=== PATIENT | male | born 1945 | race Caucasian/White ===

== ENCOUNTER 2016-12-12 06:10 | Inpatient (IN) | payer OTHER, BC ==
[~2016-12-12] VITALS: Ht 180.3 cm; Wt 86.0 kg
[2016-12-12] VITALS (20 sets, daily range): BP systolic 117–149; BP diastolic 76–93; PULSE 52–68; TEMP 36.4–36.9; O2SAT 93–98; Ht 180.3 cm; Wt 86.0 kg
[2016-12-12 06:27] LABS: BASO % 0.7 %; BASO ABS # 0.06 K/uL (0-0.2); COMPLETE YES; EOS % 4.4 %; IG% 0.1 %; LYMPH % 40.8 %; LYMPH ABS # 3.67 K/uL (1.2-3.4); MEAN CELL VOLUME 90.4 fL (80-100); MEAN CORPUSCULAR HEMOGLOBIN 32.9 pg (25-34); MEAN CORPUSCULAR HGB CONC 36.4 g/dl (32-36); MEAN PLATELET VOLUME 10.1 fL (7.4-10.4); MONO % 10.2 %; NEUT % 43.8 %; PLATELET COUNT 288 K/uL (130-400); RED BLOOD COUNT 5.53 M/uL (4.7-6.1); WHITE BLOOD COUNT 8.99 K/uL (4.8-10.8)
[2016-12-12] MEDS ORDERED: NIFE60TA55 PO (06:31)
--- NOTE | 2016-12-12 06:33 | DIAGNOSTIC IMAGING REPORT ---
CHEST ONE VIEW PORTABLE CLINICAL HISTORY: Chest Pain pain COMPARISON STUDY: No previous studies for comparison. FINDINGS: The bones soft tissues and hemidiaphragms are normal. The cardiomediastinal silhouette is normal. The lungs are clear. The pulmonary vasculature is normal. IMPRESSION: Negative chest. The above report was generated using voice recognition software. It may contain grammatical, syntax or spelling errors. Electronically signed by: Zach Christine M.D. 12/12/2016 6:32 AM Dictated Date/Time: 12/12/2016 6:32 AM
[2016-12-12] MEDS ORDERED: NITROGLYCERIN OINT 2% 1GM PACKET EXT STA (06:37)
[2016-12-12] MEDS ORDERED: NITROGLYCERIN OINT 2% 1GM PACKET ONE (06:39)
[2016-12-12 06:46] LABS: BLOOD UREA NITROGEN 15 mg/dl (7-18); BUN/CREATININE RATIO 13.3 (10-20); CALCIUM 10.3 mg/dl (8.5-10.1); CARBON DIOXIDE 25 mmol/L (21-32); CHLORIDE 103 mmol/L (98-107); GLUCOSE 132 mg/dl (70-99); POTASSIUM 3.9 mmol/L (3.5-5.1); SODIUM 138 mmol/L (136-145)
--- NOTE | 2016-12-12 06:47 | EMERGENCY ROOM VISIT NOTE ---
History Report prepared by Reese: Lanny Denton Under the Supervision of: Dr. Jaspreet Chung M.D. First contact with patient: 06:31 Chief Complaint: CHEST PAIN Stated Complaint: CHEST PAIN Nursing Triage Summary: Acute onset 0530 retrosternal chest pressure with radiation to left arm. No nausea, dizziness. No recent illness. Took 5 chewable baby aspirin prior to EMS arrival. Positive Magana sign upon arrival. History of Present Illness The patient is a 71 year old male who presents to the Emergency Room with complaints of waxing and waning left chest pain that began one hour prior to arrival. He currently rates his discomfort as a 7/10 in severity. The patient reports that this morning around 0530 he developed chest pain that he describes as a pressure. He states that he developed left arm numbness. The patient's family notes that the patient was given 4/81 mg aspirin tablets prior to EMS arrival. Per EMS reports, the patient was given 2 nitro sprays prior to arrival that helped to slightly alleviate his pain. The patient states that he became diaphoretic and additionally reports slight nausea. He states that on Monday he changed the tires on his truck, but denies any chest pain or shortness of breath at that time. The patient reports a history of hypertension , but denies any history of heart disease. He denies being a smoker. The patient denies any pain radiating into his jaw or neck. EMS additionally reports that the patient received 4 mg of Morphine and 4 mg of Zofran en-route to the emergency department. Source of History: patient, family, EMS Onset: one hour prior to arrival Position: chest (left) Symptom Intensity: 7/10 Quality: pressure Timing: waxes/wanes Modifying Factors (Relieving): other (nitroglycerin and aspirin) Associated Symptoms: + diaphoresis, + nausea, No neck pain, No SOB Review of Systems See HPI for pertinent positives & negatives. A total of 10 systems reviewed and were otherwise negative. Past Medical & Surgical Medical Problems: (1) Hypertension Family History No pertinent family history stated. Social History Smoking Status: Never Smoker Marital Status: Housing Status: lives with significant other Occupation Status: employed Current/Historical Medications Scheduled Nifedipine (Procardia Xl Ext Rel), 60 MG PO DAILY Allergies Coded Allergies: No Known Allergies (Unverified , 12/12/16) Physical Exam Vital Signs Date Time Temp Pulse Resp B/P (MAP) Pulse Ox O2 Delivery O2 Flow Rate FiO2 12/12/16 07:51 63 16 168/98 96 12/12/16 07:41 67 17 98 Nasal Cannula 2.0 12/12/16 07:31 163/95 Nasal Cannula 2.0 12/12/16 07:28 92 Nasal Cannula 3.0 12/12/16 07:26 64 12 93 Nasal Cannula 2.0 12/12/16 07:21 65 12 92 12/12/16 07:16 142/94 12/12/16 07:16 61 12/12/16 07:06 47 11 96 12/12/16 07:01 143/92 12/12/16 07:00 50 14 97 12/12/16 06:57 152/90 12/12/16 06:45 51 15 98 12/12/16 06:31 165/95 12/12/16 06:30 59 18 98 12/12/16 06:26 156/90 12/12/16 06:19 64 12/12/16 06:16 161/96 12/12/16 06:16 37.5 68 19 161/96 97 Room Air Physical Exam GENERAL: Patient is in no acute distress. HEENT: No acute trauma, normocephalic atraumatic, mucous membranes moist, no nasal congestion, no scleral icterus. NECK: No stridor, no adenopathy, no meningismus, trachea is midline. LUNGS: Clear to auscultation bilaterally, no wheeze, no rhonchi, breath sounds equal. HEART: Without murmurs gallops or rubs, regular rate and rhythm. ABDOMEN: Soft, nontender, bowel sounds positive, no hernias, no peritonitis. EXTREMITIES: No cyanosis or edema, full range of motion of all the joints without pain or difficulty, no signs for acute trauma. NEUROLOGIC: Oriented x 3, no acute motor or sensory deficits, no focal weakness. SKIN: No rash, no jaundice, no diaphoresis. Medical Decision & Procedures ER Provider Diagnostic Interpretation: X-ray results as stated below per interpretation by me and the radiologist: CHEST ONE VIEW PORTABLE CLINICAL HISTORY: Chest Pain pain COMPARISON STUDY: No previous studies for comparison. FINDINGS: The bones soft tissues and hemidiaphragms are normal. The cardiomediastinal silhouette is normal. The lungs are clear. The pulmonary vasculature is normal. IMPRESSION: Negative chest. The above report was generated using voice recognition software. It may contain grammatical, syntax or spelling errors. Electronically signed by: Zach Christine M.D. 12/12/2016 6:32 AM Dictated Date/Time: 12/12/2016 6:32 AM Laboratory Results 12/12/16 05:55 Red Blood Count 5.53, Mean Corpuscular Volume 90.4, Mean Corpuscular Hemoglobin 32.9, Mean Corpuscular Hemoglobin Concent 36.4, Mean Platelet Volume 10.1, Neutrophils (%) (Auto) 43.8, Lymphocytes (%) (Auto) 40.8, Monocytes (%) (Auto) 10.2, Eosinophils (%) (Auto) 4.4, Basophils (%) (Auto) 0.7, Neutrophils # (Auto ) 3.93, Lymphocytes # (Auto) 3.67, Monocytes # (Auto) 0.92, Eosinophils # (Auto ) 0.40, Basophils # (Auto) 0.06 12/12/16 05:55 Test 12/12/16 05:55 White Blood Count 8.99 K/uL (4.8-10.8) Red Blood Count 5.53 M/uL (4.7-6.1) Hemoglobin 18.2 g/dL (14.0-18.0) Hematocrit 50.0 % (42-52) Mean Corpuscular Volume 90.4 fL (80-100) Mean Corpuscular Hemoglobin 32.9 pg (25-34) Mean Corpuscular Hemoglobin Concent 36.4 g/dl (32-36) Platelet Count 288 K/uL (130-400) Mean Platelet Volume 10.1 fL (7.4-10.4) Neutrophils (%) (Auto) 43.8 % Lymphocytes (%) (Auto) 40.8 % Monocytes (%) (Auto) 10.2 % Eosinophils (%) (Auto) 4.4 % Basophils (%) (Auto) 0.7 % Neutrophils # (Auto) 3.93 K/uL (1.4-6.5) Lymphocytes # (Auto) 3.67 K/uL (1.2-3.4) Monocytes # (Auto) 0.92 K/uL (0.11-0.59) Eosinophils # (Auto) 0.40 K/uL (0-0.5) Basophils # (Auto) 0.06 K/uL (0-0.2) RDW Standard Deviation 45.3 fL (36.4-46.3) RDW Coefficient of Variation 13.7 % (11.5-14.5) Immature Granulocyte % (Auto) 0.1 % Immature Granulocyte # (Auto) 0.01 K/uL (0.00-0.02) Prothrombin Time 10.2 SECONDS (9.0-12.0) Prothromb Time International Ratio 1.0 (0.9-1.1) Activated Partial Thromboplast Time 27.0 SECONDS (21.0-31.0) Partial Thromboplastin Ratio 1.0 Anion Gap 10.0 mmol/L (3-11) Est Creatinine Clear Calc Drug Dose 66.5 ml/min Estimated GFR () 78.4 Estimated GFR (Non- 67.7 BUN/Creatinine Ratio 13.3 (10-20) Calcium Level 10.3 mg/dl (8.5-10.1) Total Bilirubin 2.1 mg/dl (0.2-1) Direct Bilirubin 0.3 mg/dl (0-0.2) Aspartate Amino Transf (AST/SGOT) 28 U/L (15-37) Alanine Aminotransferase (ALT/SGPT) 39 U/L (12-78) Alkaline Phosphatase 93 U/L (45-117) Total Creatine Kinase 182 U/L (39-308) Creatine Kinase MB 1.6 ng/ml (0.5-3.6) Creatine Kinase MB Ratio 0.9 (0-3.0) Troponin I < 0.015 ng/ml (0-0.045) Total Protein 8.3 gm/dl (6.4-8.2) Albumin 4.5 gm/dl (3.4-5.0) Laboratory results reviewed by me. Medications Administered Medications (Trade) Dose Ordered Sig/Mega Route Start Time Stop Time Status Last Admin Dose Admin Nitroglycerin (Nitroglycerin 2% Oint) 2 inch NOW STAT EXT 12/12/16 06:37 12/12/16 06:39 DC 12/12/16 06:42 2 INCH Morphine Sulfate (MoRPHine SULFATE INJ) 4 mg Q15M PRN IV 12/12/16 07:00 12/26/16 06:59 12/12/16 07:09 4 MG Ondansetron HCl (Zofran Inj) 4 mg NOW STAT IV 12/12/16 06:50 12/12/16 06:51 DC 12/12/16 06:55 4 MG ECG Indication: chest pain Rate (beats per minute): 74 Rhythm: sinus rhythm Findings: PVC, ST depression (Anterior), T-wave inversion (Anterior) Comparison ECG Date: no prior available Change: This EKG is similar to the EKG obtained by EMS prior to arrival. Repeat EKG: ST depressions and T wave inversions in anterior leads appear more pronounced sinus bradycardia 1st degree AV block. Repeat EKG #2: sinus bradycardia, 58 beats per minute, 1st degree AV block, T wave changes and ST depression across anterior leads are similar to previous, PVC noted. Repeat EKG #3: Improvement in T wave changes in anterior leads. ED Course 0634: The patient was evaluated in room A12B. A complete history and physical exam was performed. 0636: The patient developed more chest pain. An additional EKG was obtained. 0637: Ordered Nitroglycerin 2 inch EXT. 0644: I discussed the patients case with Dr. Monae, Interventional Cardiology. He states that Dr. Guerrero, Interventional Cardiology is going to come evaluate the patient in the emergency department. 0648: I reevaluated the patient and updated him that Dr. Guerrero Interventional Cardiology would be in to evaluate the patient. 0651: Ordered Zofran Inj 4 mg .route 0700: Ordered Morphine Sulfate 4 mg IV. 0718: I reevaluated the patient and he magui that his pain is easing slightly. He is going to have an additional EKG. I discussed the exam findings thus far with him. He is going to be evaluated for further treatment. 0732: I discussed the patients case with Dr. Barrera [facility] [place]. He is going to evaluate the patient for further treatment. 0738: Dr. Monae and Dr. Guerrero of Interventional Cardiology are at the patients bedside. Medical Decision The patient is a 71 year old male who presents to the ED with complaints of left sided chest pain. Differential diagnoses considered include NM, cardiac ischemia, aortic dissection, PE, anemia, musculoskeletal pain. There is no leukocytosis or concerning anemia. No significant electrolyte abnormality, kidney failure or hepatitis. There is no coagulopathy. Chest film does not show CHF, pneumothorax or mediastinal widening. EKG shows a sinus rhythm with ST depression and T-wave inversion in the anterior leads. A PVC is present. This EKG is concerning for acute ischemia. Cardiac enzyme testing 1 has returned negative. The patient presents with chest pain which sounded cardiac in origin. He had received nitroglycerin and aspirin prior to arrival. He was feeling better for a while and then his pain began to return. He was given 2 inches of nitro paste , IV morphine and IV Zofran. Several EKGs were done during the patient's stay. As he began to feel better with the above medications, the changes in the anterior leads began to improve. I did speak with the repair weaver store loss prevention manager immediately after seeing the patient. The patient did not meet criteria for a heart alert. He will be seen though by the cardiology team for possible environmental laboratory technician intervention if his symptoms do not completely improve. The patient is aware of his findings, he has been aggressively managed here. He is feeling improved. Admission/observation is warranted. Case management has been involved. The on-call hospitalist was consulted. Medication Reconcilliation Current Medication List: was personally reviewed by me Blood Pressure Screening Patient's blood pressure: Elevated blood pressure Blood pressure disposition: Elevated BP felt to be situational, Did not require urgent referral Consults Time Called: 0642 Consulting Physician: Dr. Monae, Interventional Cardiology Returned Call: [phone] I discussed the patients case with Dr. Monae, Interventional Cardiology. He is going to come evaluate the patient in the emergency department. Additional Consults: Time Called: 07 Consulted Physician: DOMINGA Galo Returned Call: [phone] Additional Comments: I discussed the patients case with DOMINGA Galo. He is going to evaluate the patient for further treatment. Impression Primary Impression: Precordial chest pain Additional Impression: Acute electrocardiogram changes Critical Care I have personally spent greater than 30 minutes of critical care time in the direct management of this patient. This includes bedside care, interpretation of diagnostic studies, and testing, discussion with consultants, patient, and family members, and other required patient management activities. This 30 minutes is in excess of all separately billable procedures. Scribe Attestation The scribe's documentation has been prepared under my direction and personally reviewed by me in its entirety. I confirm that the note above accurately reflects all work, treatment, procedures, and medical decision making performed by me. Departure Information Dispostion Being Evaluated By Hospitalist Referrals No Doctor, Assigned (PCP) Problem Qualifiers
[2016-12-12] MEDS ORDERED: ONDANSETRON INJ 2 MG/ML 2 ML VIAL IV STA (06:50)
[2016-12-12 06:51] LABS: CKMB/CK RATIO 0.9 (0-3.0)
[2016-12-12] MEDS ORDERED: MoRPHine SULFATE 4 MG/ML 1 ML CARP\\VIAL ONE (06:51)
[2016-12-12] MEDS ORDERED: ONDANSETRON INJ 2 MG/ML 2 ML VIAL ONE ×3 (06:51→13:19)
[2016-12-12] MEDS ORDERED: MIDAZOLAM HCL 1 MG/ML 2ML VIAL ONE ×2 (06:52→10:16)
[2016-12-12] MEDS ORDERED: NiCARDipine HCL INJ 2.5 MG/ML 10 ML AMP ONE (06:52)
[2016-12-12] MEDS ORDERED: HEPARIN SOD (PORCINE) 1000 UNIT/ML 10 ML VIAL ONE ×2 (06:52→09:45)
[2016-12-12] MEDS ORDERED: FENTANYL CITRATE INJ 50 MCG/1 ML 2 ML VIAL ONE ×2 (06:52→10:16)
[2016-12-12] MEDS ORDERED: NITROGLYCERIN/D5W 100MCG/ML 20ML SYR ONE (06:53)
[2016-12-12] MEDS: MoRPHine SULFATE 4 MG/ML 1 ML CARP\\VIAL IV PRN ×2 (06:53→07:09)
--- NOTE | 2016-12-12 08:02 | Procedure Note ---
Pre-Mod Sedation Assessment General Date of Moderate Sedation: Dec 12, 2016. Vital Signs: Vital Signs Past 12 Hours Date Time Temp Pulse Resp B/P (MAP) Pulse Ox O2 Delivery O2 Flow Rate FiO2 12/12/16 07:51 63 16 168/98 96 12/12/16 07:41 67 17 98 Nasal Cannula 2.0 12/12/16 07:31 163/95 Nasal Cannula 2.0 12/12/16 07:28 92 Nasal Cannula 3.0 12/12/16 07:26 64 12 93 Nasal Cannula 2.0 12/12/16 07:21 65 12 92 12/12/16 07:16 142/94 12/12/16 07:16 61 12/12/16 07:06 47 11 96 12/12/16 07:01 143/92 12/12/16 07:00 50 14 97 12/12/16 06:57 152/90 12/12/16 06:45 51 15 98 12/12/16 06:31 165/95 12/12/16 06:30 59 18 98 12/12/16 06:26 156/90 12/12/16 06:19 64 12/12/16 06:16 161/96 12/12/16 06:16 37.5 68 19 161/96 97 Room Air Review Cardiovascular: regular rate, rhythm, no edema Abdomen: normal bowel sounds, non tender Lungs: chest non-tender, lungs clear Airway Class: III Pre-Sedation Airway Assessment Oral Cavity: WNL Able to Visualize Vocal Cords: No Short Thick Neck: Yes Hx of Sleep Apnea: Yes Smoking Status: Never Smoker Mallampati Classification: Class III ASA Classification: Class III Procedure Planning Contraindications-for Mod Sed: None Yes Notes The planned sedation has been discussed with the patient and consent obtained. I have identified the patient, determined the appropriateness of sedation and have assessed the patient immediately prior to the procedure. All medicine(s) and interventions are by my order.
[2016-12-12 08:24] LABS: PROTHROMBIN TIME (PATIENT) 10.2 SECONDS (9.0-12.0)
--- NOTE | 2016-12-12 08:45 | CARDIOLOGY CONSULTATION ---
DATE OF CONSULTATION: 12/12/2016 REASON FOR CONSULTATION: Chest pain. CONSULTATION REQUESTED BY: Dr. Khanna. HISTORY OF PRESENT ILLNESS: Mr. Bender is a 71-year-old man with a history of hypertension, family history of premature coronary artery disease who presented today with a 1 hour of acute onset chest pain. The patient was driving to work this morning when he developed left-sided chest pain that radiated down his left arm, associated with left arm numbness and diaphoresis. The patient endorses his max pain was 10/10. He presented to the [facility] Emergency Department. His initial EKG showed ST depressions across the precordial leads. He was given sublingual and a nitroglycerin patch with improvement in symptoms at the time of interview chest pain was 6/10. The patient denies any similar chest pain in the past. He has no prior cardiac history. No other significant medical history. He was given aspirin en route. PAST MEDICAL HISTORY: Hypertension. PAST SURGICAL HISTORY: Colposcopy, cholecystectomy, prior lipoma removal. FAMILY HISTORY: Father had an RI in his 50s. SOCIAL HISTORY: Denies tobacco or alcohol use. He is , works as a gravel truck driver. REVIEW OF SYSTEMS: Otherwise, negative unless stated in HPI. PHYSICAL EXAMINATION: VITAL SIGNS: Temperature 37.5, blood pressure 161/96. He is satting 98% on room air. His heart rate was 68. GENERAL: The patient appeared uncomfortable but in no acute distress. HEENT: Sclerae are anicteric. Oropharynx is clear. Mucous membranes are moist. NECK: Supple with no lymphadenopathy. LUNGS: Clear to auscultation bilaterally. HEART: Regular rate and rhythm with occasional premature beats. No murmurs, rubs or gallops. ABDOMEN: Soft, nontender, nondistended with positive bowel sounds. EXTREMITIES: Warm with no significant lower extremity edema. SKIN: Shows no rashes or lesions. NEUROLOGIC: Nonfocal. PSYCHIATRIC: He is alert and appropriate. LABORATORY DATA: White blood cell count 8.9, hemoglobin 18.2, platelets of 288. INR pending. Sodium 138, potassium 3.9, BUN 15, creatinine of 1.1. Initial troponin was negative. Chest x-ray showed no acute cardiopulmonary process. EKG showed sinus rhythm with first degree AV block, was bradycardia with ventricular rate of 51. He had deeper ST depression most notable in V2 through V4. IMPRESSION AND PLAN: 1. Suspected acute coronary syndrome. 2. Hypertension. Mr. Bender is here with typical chest pain partially resolved with topical nitrates. His initial EKG has dynamic ST changes concerning for ACS. In the setting of active chest pain, we will plan on proceeding with urgent cardiac catheterization. Discussed benefits, risk, alternatives of procedure with the patient and he is willing to proceed. Further recommendations pending findings cardiac catheterization. JAYE
[2016-12-12] MEDS ORDERED: AMIODARONE 150MG / 100ML D5W ONE (09:29)
[2016-12-12] MEDS ORDERED: AMIODARONE 360MG / 200ML D5W ONE (09:32)
[2016-12-12] MEDS ORDERED: MoRPHine SULFATE 4 MG/ML 1 ML CARP\\VIAL IV PRN (10:00)
[2016-12-12] MEDS ORDERED: ACETAMINOPHEN 325 MG TAB PO PRN ×2 (10:00→10:45)
[2016-12-12] MEDS ORDERED: EPTIFIBATIDE 2 MG/ML 10 ML VIAL IV ONE (10:08)
[2016-12-12] MEDS ORDERED: EPTIFIBATIDE 0.75 MG/ML 75MG VIAL IV ONE (10:08)
[2016-12-12] MEDS ORDERED: TICAGRELOR 90 MG TAB PO ONE (10:34)
[2016-12-12] MEDS ORDERED: AMIODARONE IV BOLUS / DRIP IV STA (10:40)
[2016-12-12] MEDS ORDERED: EPTIFIBATIDE BOLUS / DRIP IV ONE (10:45)
[2016-12-12] MEDS ORDERED: AMIODARONE / D5W 200 ML IV SCH (11:30)
--- NOTE | 2016-12-12 11:30 | Critical Care Consultation ---
Critical Care Consultation Date of Consultation: Dec 12, 2016. Attending Physician: Oleg Sanders D.O. Reason for Consultation: ACS , s/p THOMAS on Integrilin and amiodarone drip. History of Present Illness Dear Dr. Guerrero: thank you for your kind referral of Mr. Bender to ICU, this is 71 yo nice gentleman with a hx of hypertension treated with procardia, no hx of cardiac events, presented to the hospital with sudden onset chest pain @ diaphoresis and numbness in the left arm. he called his son and called the EMT and brought to the ED with diagnosis of ACS. in the ED the pt had an EKG showing inverted T wave in V2-V4 and occasional PVC, s. he was started on heparin drip, ASA and transferred to the rn labor delivery for PCI. in the lab scientist, the pt had two lesions in the LAD and RCA, THOMAS was placed in the RCA, he did have one episode of V fib, responded to a single defibrillation , started on Amiodarone drip as well Integrillin drip. loaded with antiplatelets . In the ICU, he was noted to be lethargic but answering questions appropriately, denies chest pain, only faint discomfort in the chest, he feels much better. no nausia , no syncopal feeling, no palpitation. no leg pain , leg swelling or neuro focal deficit. no headache or visual disturbances. Past Medical/Surgical History HTn . no hx of HLP or DM. Family History family hx of CAD . no hx of needed vascular intervention. Social History Smoking Status: Never Smoker Alcohol Use: none Drug Use: none Marital Status: Housing Status: lives with significant other Occupation Status: employed Allergies Coded Allergies: No Known Allergies (Unverified , 12/12/16) Home Medications Scheduled Nifedipine (Procardia Xl Ext Rel), 60 MG PO DAILY Current Inpatient Medications Current Inpatient Medications Medications (Trade) Dose Ordered Sig/Mega Route Start Time Stop Time Status Last Admin Dose Admin Morphine Sulfate (MoRPHine SULFATE INJ) 4 mg Q15M PRN IV 12/12/16 07:00 12/26/16 06:59 12/12/16 07:09 4 MG Acetaminophen (Tylenol Tab) 650 mg Q4H PRN PO 12/12/16 10:00 01/11/17 09:59 Morphine Sulfate (MoRPHine SULFATE INJ) 2 mg Q2H PRN IV 12/12/16 10:00 12/26/16 09:59 Morphine Sulfate (MoRPHine SULFATE INJ) 4 mg Q2H PRN IV 12/12/16 10:00 12/26/16 09:59 Sodium Chloride 1,000 ml @ 125 mls/hr Q8H IV 12/12/16 10:45 12/12/16 16:44 UNV Atorvastatin Calcium (Lipitor Tab) 80 mg QAM PO 12/13/16 09:00 01/12/17 08:59 UNV Metoprolol Tartrate (Lopressor Tab) 25 mg Q12 PO 12/12/16 21:00 01/11/17 20:59 UNV Lisinopril (Zestril Tab) 5 mg QAM PO 12/13/16 09:00 01/12/17 08:59 UNV Acetaminophen (Tylenol Tab) 650 mg Q4H PRN PO 12/12/16 10:45 01/11/17 10:44 UNV Eptifibatide (Integrilin Bolus / Drip) 1 ea ONE ONCE IV 12/12/16 10:45 12/12/16 10:46 UNV Ticagrelor (Brilinta Tab) 90 mg BID PO 12/12/16 21:00 01/11/17 20:59 UNV Aspirin (Ecotrin Tab) 81 mg QAM PO 12/13/16 09:00 01/12/17 08:59 UNV Amiodarone HCl (Cordarone IV Bolus / Drip) 1 ea NOW STAT IV 12/12/16 10:40 12/12/16 10:41 UNV Review of Systems Constitutional: + chills, + sweats, + fatigue Eyes: No worsening of vision, No eye pain, No redness, No discharge, No diplopia, No problem reported ENT: No hearing loss, No unusual epistaxis, No nasal symptoms, No sore throat, No tinnitus, No dental problems, No trouble swallowing, No problem reported Respiratory: + cough, + wheezing, + shortness of breath Cardiovascular: + chest pain Abdomen: + pain, + nausea, + vomiting Musculoskeletal: No joint pain, No muscle pain, No swelling, No calf pain, No problem reported Neurologic: No memory loss, No paralysis, No weakness, No numbness/tingling, No vertigo, No balance problems, No problem reported Psychiatric: No depression symptoms, No anhedonism, No anxiety, No insomnia, No substance abuse, No problem reported Hematologic / Lymphatic: No abnormal bleeding/bruising, No clotting problems, No swollen lymph nodes, No night sweats, No problem reported Integumentary: No rash, No itch, No new/changing skin lesions, No color change , No bleeding, No problem reported Allergic / Immunologic: No environmental allergies, No seasonal allergies, No pet sensitivities, No food allergies, No hives, No frequent infections, No poor healing, No prolonged convalescence, No problem reported Physical Exam Date Time Temp Pulse Resp B/P (MAP) Pulse Ox O2 Delivery O2 Flow Rate FiO2 12/12/16 10:42 63 16 132/81 (98) 95 Room Air 12/12/16 10:27 60 16 131/80 (97) 99 Mask 6 12/12/16 07:51 63 16 168/98 96 12/12/16 07:41 67 17 98 Nasal Cannula 2.0 12/12/16 07:31 163/95 Nasal Cannula 2.0 12/12/16 07:28 92 Nasal Cannula 3.0 12/12/16 07:26 64 12 93 Nasal Cannula 2.0 12/12/16 07:21 65 12 92 12/12/16 07:16 142/94 12/12/16 07:16 61 12/12/16 07:06 47 11 96 12/12/16 07:01 143/92 12/12/16 07:00 50 14 97 12/12/16 06:57 152/90 12/12/16 06:45 51 15 98 12/12/16 06:31 165/95 12/12/16 06:30 59 18 98 12/12/16 06:26 156/90 12/12/16 06:19 64 12/12/16 06:16 161/96 12/12/16 06:16 37.5 68 19 161/96 97 Room Air General Appearance: well-appearing Head: normocephalic, atraumatic Eyes: PERRLA, EOMI ENT: normal mouth exam Neck: normal range of motion, no tenderness, trachea midline, no stridor Respiratory: breath sounds normal, clear to auscultation Cardiovasular: normal S1S2, no M/G/R Abdomen: non tender, no rebound Upper Extremities: no edema, other Lower Extremities: no edema Neuro: alert, oriented x 3, normal motor exam, normal sensation Psychiatric: normal affect Laboratory Results Last 24 Hours Test 12/12/16 05:55 12/12/16 09:40 12/12/16 10:03 12/12/16 10:40 White Blood Count 8.99 K/uL Red Blood Count 5.53 M/uL Hemoglobin 18.2 g/dL Hematocrit 50.0 % Mean Corpuscular Volume 90.4 fL Mean Corpuscular Hemoglobin 32.9 pg Mean Corpuscular Hemoglobin Concent 36.4 g/dl Platelet Count 288 K/uL Mean Platelet Volume 10.1 fL Neutrophils (%) (Auto) 43.8 % Lymphocytes (%) (Auto) 40.8 % Monocytes (%) (Auto) 10.2 % Eosinophils (%) (Auto) 4.4 % Basophils (%) (Auto) 0.7 % Neutrophils # (Auto) 3.93 K/uL Lymphocytes # (Auto) 3.67 K/uL Monocytes # (Auto) 0.92 K/uL Eosinophils # (Auto) 0.40 K/uL Basophils # (Auto) 0.06 K/uL RDW Standard Deviation 45.3 fL RDW Coefficient of Variation 13.7 % Immature Granulocyte % (Auto) 0.1 % Immature Granulocyte # (Auto) 0.01 K/uL Prothrombin Time 10.2 SECONDS Prothromb Time International Ratio 1.0 Activated Partial Thromboplast Time 27.0 SECONDS Partial Thromboplastin Ratio 1.0 Sodium Level 138 mmol/L Potassium Level 3.9 mmol/L Chloride Level 103 mmol/L Carbon Dioxide Level 25 mmol/L Anion Gap 10.0 mmol/L Blood Urea Nitrogen 15 mg/dl Creatinine 1.10 mg/dl Est Creatinine Clear Calc Drug Dose 66.5 ml/min Estimated GFR () 78.4 Estimated GFR (Non- 67.7 BUN/Creatinine Ratio 13.3 Random Glucose 132 mg/dl Calcium Level 10.3 mg/dl Total Bilirubin 2.1 mg/dl Direct Bilirubin 0.3 mg/dl Aspartate Amino Transf (AST/SGOT) 28 U/L Alanine Aminotransferase (ALT/SGPT) 39 U/L Alkaline Phosphatase 93 U/L Total Creatine Kinase 182 U/L Creatine Kinase MB 1.6 ng/ml Creatine Kinase MB Ratio 0.9 Troponin I < 0.015 ng/ml Total Protein 8.3 gm/dl Albumin 4.5 gm/dl Kaolin Activated Coagulation Time 202 SECONDS 230 SECONDS Diagnostic Results CXR reviewed, normal, tracheal shift noted could be positional. Assessment & Plan 1- ACS, first trop was negative, second is pending. 2 lesions in the LAD and RCA with THOMAS to the RCA. 2- v fib, s/p defibrillation. 3- hx of Htn, controlled. 4- right radial site appears normal , vascular band in place, no evidence of bleeding or induration, no cyanosis or coldness or numbness in the right hand. 5- HLP. 6- EKG changes compatible with NSTEMI. Plan: 1- appreciate Cardiology input. 2- continue post cath care, Integrilin , Brilinta, ASA. 3- Amiodarone drip per protocol. 4- BP control, so far acceptable. 5- venodyne boots. 6- oral intake. 7- ICU monitoring. 8- further plan per cardiology. 9- full code. 10- discussed with the staff at the bed side in details. CCT 35 min.
[2016-12-12] MEDS: EPTIFIBATIDE INJ 75 MG PREMIXED IV SCH ×2 (11:38→15:36)
[2016-12-12] MEDS: SODIUM CHLORIDE 0.9% 1000ML 1,000 ML IV SCH ×2 (11:40→15:38)
[2016-12-12] MEDS: MoRPHine SULFATE 2 MG/ML CARP IV PRN ×3 (11:40→22:19)
[2016-12-12] MEDS ORDERED: METOCLOPRAMIDE HCL INJ 5 MG/ML 2 ML VIAL ONE (11:57)
[2016-12-12] MEDS ORDERED: METOCLOPRAMIDE HCL INJ 5 MG/ML 2 ML VIAL IV STA (12:06)
[2016-12-12] MEDS ORDERED: PROCHLORPERAZINE INJ 5 MG in SYRINGE 4 ML IV PRN (12:45)
--- NOTE | 2016-12-12 14:23 | History and Physical ---
History & Physical Date & Time of Service: Dec 12, 2016 at 13:57 Chief Complaint: Acute Coronary Syndrome, Precordial Chest Pain Primary Care Physician: Jamil Lim M.D. History of Present Illness Source: patient, family, hospital records 71 yo male with only a history of HTN, presented to the ED with severe chest pain and TW inversions in anterior leads. The patient had no history of angina or CAD. He awoke with chest pain and it waxed and waned for an hour before he presented to the ED. Associated with some diaphoresis. He took 4 baby aspirin and 2 doses of nitroglycerin which did alleviate the pain somewhat. In the ED he was found to have TW inversions in anterior leads, troponin negative. Vitals stable. He was taken to the slab inspector and found to have significant CAD with three vessels involved. The most significant lesion was in the left circumflex, >90%, likely the source of symptoms. He had simple balloon angioplasty performed but he developed ventricular fibrillation and had to be shocked once. For this reason, he had a BMS placed in the left circumflex. Patient was transferred to the ICU in stable condition. Visited with patient an hour after procedure. Resting comfortably in bed. Only complaint was some mild pain between his shoulder blades. Had some nausea that had resolved. Discussed case with Dr. Guerrero, plans to hospitalized for 48 hours, may be able to return home at that point and follow up with cardiovascular surgery for CABG evaluation Past Medical/Surgical History Medical Problems: (1) Hypertension Status: Chronic Family History CAD Social History Smoking Status: Never Smoker Alcohol Use: none Drug Use: none Marital Status: Occupational Status: employed Allergies Coded Allergies: No Known Allergies (Unverified , 12/12/16) Home Medications Scheduled Nifedipine (Procardia Xl Ext Rel), 60 MG PO DAILY Review of Systems Constitutional: No fever, No chills, No sweats, No weight loss, No weakness, No fatigue, No problem reported Eyes: No worsening of vision, No eye pain, No redness, No discharge, No diplopia, No problem reported ENT: No hearing loss, No unusual epistaxis, No nasal symptoms, No sore throat, No tinnitus, No dental problems, No trouble swallowing, No problem reported Respiratory: No cough, No sputum, No wheezing, No shortness of breath, No dyspnea on exertion, No dyspnea at rest, No hemoptysis, No problem reported Cardiovascular: + chest pain, No orthopnea, No PND, No edema, No claudication Abdomen: + nausea, No pain, No vomiting, No diarrhea, No constipation Musculoskeletal: No joint pain, No muscle pain, No swelling, No calf pain, No problem reported Genitourinary - Male: No hematuria, No dysuria, No urinary frequency, No urinary urgency Neurologic: No memory loss, No paralysis, No weakness, No numbness/tingling, No vertigo, No balance problems, No problem reported Psychiatric: No depression symptoms, No anhedonism, No anxiety, No insomnia, No substance abuse, No problem reported Endocrine: No fatigue, No excessive thirst, No excessive urination, No problem reported Hematologic / Lymphatic: No abnormal bleeding/bruising, No clotting problems, No swollen lymph nodes, No night sweats, No problem reported Integumentary: No rash, No itch, No new/changing skin lesions, No color change , No bleeding, No problem reported Allergic / Immunologic: No environmental allergies, No seasonal allergies, No pet sensitivities, No food allergies, No hives, No frequent infections, No poor healing, No prolonged convalescence, No problem reported Physical Exam Vital Signs Date Time Temp Pulse Resp B/P (MAP) Pulse Ox O2 Delivery O2 Flow Rate FiO2 12/12/16 12:31 67 17 140/86 (104) 95 Nasal Cannula 2.0 12/12/16 12:16 65 17 138/79 (98) 95 Nasal Cannula 2.0 12/12/16 12:01 62 18 134/86 (102) 96 Nasal Cannula 2.0 12/12/16 11:46 66 19 142/93 (109) 96 Nasal Cannula 2.0 12/12/16 11:31 60 16 146/88 (107) 96 Nasal Cannula 2.0 12/12/16 11:03 36.4 58 12 135/86 96 Nasal Cannula 2.0 12/12/16 11:01 60 17 135/86 (102) 96 Nasal Cannula 2.0 12/12/16 10:58 36.4 64 15 138/82 (100) 95 Nasal Cannula 2.0 12/12/16 10:42 63 16 132/81 (98) 95 Room Air 12/12/16 10:27 60 16 131/80 (97) 99 Mask 6 12/12/16 07:51 63 16 168/98 96 12/12/16 07:41 67 17 98 Nasal Cannula 2.0 12/12/16 07:31 163/95 Nasal Cannula 2.0 12/12/16 07:28 92 Nasal Cannula 3.0 12/12/16 07:26 64 12 93 Nasal Cannula 2.0 12/12/16 07:21 65 12 92 12/12/16 07:16 142/94 12/12/16 07:16 61 12/12/16 07:06 47 11 96 12/12/16 07:01 143/92 12/12/16 07:00 50 14 97 12/12/16 06:57 152/90 12/12/16 06:45 51 15 98 12/12/16 06:31 165/95 12/12/16 06:30 59 18 98 12/12/16 06:26 156/90 12/12/16 06:19 64 12/12/16 06:16 161/96 12/12/16 06:16 37.5 68 19 161/96 97 Room Air General Appearance: WD/WN, no apparent distress Head: normocephalic, atraumatic Eyes: normal inspection, EOMI, sclerae normal ENT: normal ENT inspection, hearing grossly normal, pharynx normal Neck: supple, no adenopathy, no JVD, trachea midline Respiratory/Chest: chest non-tender, lungs clear, normal breath sounds, no respiratory distress, no accessory muscle use Cardiovascular: regular rate, rhythm, no edema, no gallop, no JVD, no murmur, normal peripheral pulses Abdomen/GI: normal bowel sounds, non tender, soft, no organomegaly Back: normal inspection, no CVA tenderness, no muscle spasm, normal range of motion Extremities/Musculoskelatal: normal inspection, no calf tenderness, normal capillary refill, no pedal edema, normal range of motion, non-tender, pelvis stable Neurologic/Psych: preschool associate teacher II-XII nml as tested, no motor/sensory deficits, alert, normal mood/affect, normal reflexes, oriented x 3 Skin: normal color, warm/dry, no rash Diagnostics Laboratory Results Results Past 24 Hours Test 12/12/16 05:55 12/12/16 09:40 12/12/16 10:03 12/12/16 11:19 Range/Units White Blood Count 8.99 4.8-10.8 K/uL Red Blood Count 5.53 4.7-6.1 M/uL Hemoglobin 18.2 14.0-18.0 g/dL Hematocrit 50.0 42-52 % Mean Corpuscular Volume 90.4 80-100 fL Mean Corpuscular Hemoglobin 32.9 25-34 pg Mean Corpuscular Hemoglobin Concent 36.4 32-36 g/dl Platelet Count 288 130-400 K/uL Mean Platelet Volume 10.1 7.4-10.4 fL Neutrophils (%) (Auto) 43.8 % Lymphocytes (%) (Auto) 40.8 % Monocytes (%) (Auto) 10.2 % Eosinophils (%) (Auto) 4.4 % Basophils (%) (Auto) 0.7 % Neutrophils # (Auto) 3.93 1.4-6.5 K/uL Lymphocytes # (Auto) 3.67 1.2-3.4 K/uL Monocytes # (Auto) 0.92 0.11-0.59 K/uL Eosinophils # (Auto) 0.40 0-0.5 K/uL Basophils # (Auto) 0.06 0-0.2 K/uL RDW Standard Deviation 45.3 36.4-46.3 fL RDW Coefficient of Variation 13.7 11.5-14.5 % Immature Granulocyte % (Auto) 0.1 % Immature Granulocyte # (Auto) 0.01 0.00-0.02 K/uL Prothrombin Time 10.2 9.0-12.0 SECONDS Prothromb Time International Ratio 1.0 0.9-1.1 Activated Partial Thromboplast Time 27.0 21.0-31.0 SECONDS Partial Thromboplastin Ratio 1.0 Sodium Level 138 136-145 mmol/L Potassium Level 3.9 3.5-5.1 mmol/L Chloride Level 103 98-107 mmol/L Carbon Dioxide Level 25 21-32 mmol/L Anion Gap 10.0 3-11 mmol/L Blood Urea Nitrogen 15 7-18 mg/dl Creatinine 1.10 0.60-1.40 mg/dl Est Creatinine Clear Calc Drug Dose 66.5 ml/min Estimated GFR () 78.4 Estimated GFR (Non- 67.7 BUN/Creatinine Ratio 13.3 10-20 Random Glucose 132 70-99 mg/dl Calcium Level 10.3 8.5-10.1 mg/dl Total Bilirubin 2.1 0.2-1 mg/dl Direct Bilirubin 0.3 0-0.2 mg/dl Aspartate Amino Transf (AST/SGOT) 28 15-37 U/L Alanine Aminotransferase (ALT/SGPT) 39 12-78 U/L Alkaline Phosphatase 93 45-117 U/L Total Creatine Kinase 182 39-308 U/L Creatine Kinase MB 1.6 0.5-3.6 ng/ml Creatine Kinase MB Ratio 0.9 0-3.0 Troponin I < 0.015 2.230 0-0.045 ng/ml Total Protein 8.3 6.4-8.2 gm/dl Albumin 4.5 3.4-5.0 gm/dl Hepatitis C Antibody Screen NEG NEG Kaolin Activated Coagulation Time 202 230 94-140 SECONDS Microbiology Results 12/12/16 MRSA DNA Surveillance Screen - Final, Complete Specimen Negative for MRSA by DNA Probe CXR normal EKG sinus rhythm with ST depressions and TW inversions in V2 and V3 consistent with ischemia Impression Assessment and Plan 71 yo male with NSTEMI - NSTEMI: treated with cardiac catheterization, found to have three vessel disease > 90% lesion in left circumflex, treated with bare metal stent, on aspirin and Brilinta Lipitor 80mg daily keep in ICU tonight due to intervention check echocardiogram - Ventricular fibrillation: one episode that resolved with defibrillation, occurred after balloon angioplasty to the left circumflex Amiodarone drip, remain in ICU for close monitoring - HTN: previously on Proscar will change to metoprolol 25mg BID and Lisinopril now with CAD plan: keep in ICU overnight, d/c home in 48 hours if he remains stable Level of Care Critical Care Advanced Directives Existing Living Will: No Existing Power of Risk Control Specialist: No Resuscitation Status FULL RESUSCITATION VTE Prophylaxis VTE Risk Assessment Done? Y/N: Yes Risk Level: High Additional Copies To Jamil Lim M.D.
[2016-12-12] MEDS: AMIODARONE / D5W 200 ML IV SCH (15:34)
--- NOTE | 2016-12-12 15:57 | Cardiac Catheterization ---
Procedure Note Procedure Date Dec 12, 2016. Pre-Procedure Diagnosis Acute Coronary Syndrome AUC Score 8 Post-Procedure Diagnosis Severe CAD, Successful PCI, Normal Intracardiac Pressures Procedure(s) Performed Coronary Angiography, Left Heart Cath, Bare Metal Stent, IVUS, Defibrillation Glass Etcher Cesar Resource Manager Forester(s) Annette Estimated Blood Loss 20 Medication(s) Fentanyl, Heparin, Nitroglycerin, Versed, Lidocaine 1% Summary of Findings Indication: High-risk NSTEMI Access: 6Fr Right Radial Artery Catheters: Diller, JL4, JR4, AR1; EBU 3.75 guide Findings: LM - Large caliber, 30-40% distal stenosis (CSA 8.6 mm2) LAD - 60-70% diffuse, mildly calcified ostial/proximal disease; small mid vessel with 60% diffuse disease, tapers before apex; moderate caliber 1st diagonal with 70-80% focal mid stenosis Circumflex - Moderate caliber, 60% ostial stenosis, 60% focal mid segment stenosis; mid-distal segment with 99% acute subtotal occlusion with distal JOSE 2 flow Ramus - Small vessel with diffuse 60-70% disease RCA - Dominant, large vessel, 60-70% distal segment stenosis before take-off of R-PDA; 70% focal mid R-PDA; diffuse disease in R-PLB2 LVEDP - 10 -- PCI -- Antithrombotic therapy: Heparin, Integrilin, Ticagrelor Procedure: LM cannulated with EBU 3.75 guide Museum Informatics Specialist 50 wire passed across mid-distal LCx lesion into distal vessel Mid-distal LCx lesion predilated with 2.5 compliant balloon to re-establish flow Post balloon inflation patient went into VF --> Defibrillation x1 at 200J IVUS assessment of circumflex showed mildly calcified distal plaque and moderate to severe ostial, mid segment disease BMW wire placed into LAD/1st diagonal IVUS assessment of LAD showed 30-40% distal left main with diffuse, moderately calcified, 70% ostial to proximal LAD Repeat angiography of circumflex showed questionable distal vessel dissection with significant lesion recoil and impaired distal flow--> decision made to stent mid-distal circumflex Dilated lesion stented with 2.75 x 22 Integrity BMS IVUS showed mild under-expansion in proximal aspect of stent Stent post-dilated with 3.0 noncompliant balloon IC vasodilators administered for spasm Post procedure JOSE 3 flow, stent well expanded with minimal residual stenosis and no apparent cardiac complications. Arterial Closure: TR Band Summary: 1. Severe multivessel coronary artery disease - Acute subtotal occlusion of mid-distal circumflex - 30-40% distal left main stenosis - 60% ostial and mid circumflex - 70% ostial/proximal LAD; 70-80% 1st diagonal - 60-70% distal RCA 2. Normal intracardiac filling pressure 3. Successful PCI of mid-distal circumflex with 2.75 x 22 Integrity BMS (post- dilated to 3.0) Recommendations: To ICU for continued monitoring Continue integrilin infusion for 8 hours Continue amiodarone infusion for 24 hours after post-angioplasty VF/successful defibrillation. Loaded with Ticagrelor 180mg in cathode ray tube salvage processor Trend troponins until peaks, Echo to assess LV function Continue dual-antiplatelet therapy for 1 year Start statin, beta-yasemin and ANGEL Consult cardiac Rehab Further discussion regarding management of residual coronary disease. Possible outpatient referral for CABG vs medical management and outpatient stress. Hemodynamics Rest Ao: 126/76/99 Final Ao: 112/70/90 LV: 123/10 Recommendations PCI without planned CABG Specimens None Radiation Exposure (mGy) 6594 Contrast (mls) 290 Visi Fluids (cc crystalloids) 400 Drains None Anesthesia Moderate Procedural Complication(s) None Disposition ICU ACC Data Cardiac Status Clinical evaluation leading to the procedure CAD Presntation: Unstable angina Anginal Classification: CCS IV Heart Failure: No, NYHA Class: CCS I Cardiogenic Shock w/in 24Hrs: No Cardiac Arrest w/in 24Hrs: No Imaging studies past 6 months: No Stress studies past 6 months: No Standard Exercise Stress Test: No Stress Echocardiogram: No Stress Testing w/SPECT MPI: No Cardiac CTA: No Diagnostic Physician's Name: Froylan Guerrero MD Closure Device Percutaneous Entry Location: Radial Closure Device: Radial Band Recommendations: PCI without planned CABG PCI Indication: PCI for high risk Non-STEMI Lesion Segment Name: mid-distal circumflex Culprit Artery: Yes Stenosis Prior to Rx (%): 99 Chronic Total Occlusion: No IVUS: Yes FFR: No Pre-Procedure JOSE Flow: 2 Previously Treated Lesion: No Lesion Complexity: Non-High/Non-C Lesion Length (mm): 18 Thrombus Present: Yes Bifurcation Lesion: No Guidewire Across Lesion: Yes Guidewire: Stenosis Post-Procedure (%): 0 Post-Procedure JOSE Flow: 3 Device(s) Deployed: Yes Intraprocedure Events Significant Dissection: No Perforation: No
[2016-12-12] MEDS ORDERED: NURSING VERBAL MED ORDER ONE (17:45)
[2016-12-12] MEDS ORDERED: ONDANSETRON INJ 2 MG/ML 2 ML VIAL IV SCH (18:00)
[2016-12-12] MEDS ORDERED: ONDANSETRON INJ 2 MG/ML 2 ML VIAL IV PRN (18:00)
[2016-12-12] MEDS ORDERED: Integrelin infusion --> STOP ORDER ONE (19:00)
[2016-12-12 19:06] LABS: CKMB/CK RATIO 9.7 (0-3.0)
[2016-12-12] MEDS: METOPROLOL TARTRATE 25 MG TAB PO SCH ×2 (21:00→22:13)
[2016-12-12] MEDS: TICAGRELOR 90 MG TAB PO SCH (21:25)
[2016-12-13] VITALS (10 sets, daily range): BP systolic 112–144; BP diastolic 71–91; PULSE 49–65; TEMP 36.8–37; O2SAT 94–97
[2016-12-13 00:56] LABS: CKMB/CK RATIO 9.9 (0-3.0)
[2016-12-13] MEDS: AMIODARONE / D5W 200 ML IV SCH (02:49)
[2016-12-13 05:49] LABS: BASO % 0.1 %; BASO ABS # 0.01 K/uL (0-0.2); COMPLETE YES; EOS % 0.4 %; HEMATOCRIT 43.7 % (42-52); IG% 0.4 %; LYMPH % 10.5 %; LYMPH ABS # 1.29 K/uL (1.2-3.4); MEAN CELL VOLUME 90.3 fL (80-100); MEAN CORPUSCULAR HEMOGLOBIN 32.9 pg (25-34); MEAN CORPUSCULAR HGB CONC 36.4 g/dl (32-36); MEAN PLATELET VOLUME 9.9 fL (7.4-10.4); MONO % 8.2 %; NEUT % 80.4 %; PLATELET COUNT 232 K/uL (130-400); RED BLOOD COUNT 4.84 M/uL (4.7-6.1); WHITE BLOOD COUNT 12.25 K/uL (4.8-10.8)
[2016-12-13 05:58] LABS: ESTIMATED AVERAGE GLUCOSE 103 mg/dl; HA1C FLAG Normal (Normal)
[2016-12-13 06:18] LABS: BUN/CREATININE RATIO 8.2 (10-20); CALCIUM 8.3 mg/dl (8.5-10.1); CREATININE 0.91 mg/dl (0.60-1.40); POTASSIUM 3.4 mmol/L (3.5-5.1)
[2016-12-13 06:22] LABS: CKMB/CK RATIO 9.6 (0-3.0)
--- NOTE | 2016-12-13 07:57 | Clinical Documentation Query ---
CLINICAL DOCUMENTATION QUERY 71 yo male admitted for NSTEMI and s/p PCI. In your clinical opinion is this patient being managed for: (x ) Post-infarction angina in the setting of CAD, NSTEMI, and treatment with PCI ( ) Not Agree ( ) Other explanation of clinical findings (Please Explain) ( ) Unable to determine (Please Define) ( ) Need to Discuss The medical record reflects the following clinical findings, treatment, and risk factors. Clinical Indicators: complaints of chest, shoulder, and back pain, nausea Treatment: Morphine IV Risk Factors: s/p NSTEMI, PCI, CAD Please clarify and document your clinical opinion in the progress notes and discharge summary. Terms such as "probable", "suspected", "likely", "questionable", "possible", or "still to be ruled out" are acceptable. IF IN AGREEMENT, YOU MUST DOCUMENT ABOVE DIAGNOSTIC STATEMENT IN DAILY PROGRESS NOTES AND DISCHARGE SUMMARY. This document is not part of the patient's record. Thank You, Susana Rush RN [phone]
[2016-12-13] MEDS: METOPROLOL TARTRATE 25 MG TAB PO SCH ×2 (08:22→20:39)
[2016-12-13] MEDS: LISINOPRIL 5 MG TAB PO SCH (08:22)
[2016-12-13] MEDS: TICAGRELOR 90 MG TAB PO SCH ×2 (08:22→20:39)
[2016-12-13] MEDS: ATORVASTATIN 40 MG TAB PO SCH (08:23)
[2016-12-13] MEDS: ASPIRIN 81 MG ECTAB PO SCH (08:23)
[2016-12-13] MEDS ORDERED: PANTOprazole SOD 40 MG TAB PO SCH (09:00)
[2016-12-13] MEDS: POTASSIUM CHLR 10 MEQ / WTR 10 MEQ in PREMIXED WATER 100 ML IV SCH ×4 (09:56→14:24)
--- NOTE | 2016-12-13 09:58 | Cardiology Follow-Up ---
Subjective Subjective Date of Service: Dec 13, 2016. Pt evaluation today including: conversation w/ patient, physical exam, chart review, lab review, review of studies, conversation w/ [employer] consultant, review of inpatient medication list Additional Details: Patient feeling well. Chest/back pain largely resolved. Mild nausea improving. No other events overnight. Telemetry reviewed -- no events. Problem List Medical Problems: (1) Acute electrocardiogram changes Status: Acute (2) Precordial chest pain Status: Acute Review of Systems Constitutional: No fever ENT: No hearing loss Respiratory: No cough, No sputum Cardiac: No chest pain Abdomen: No pain, No nausea Heme: No abnormal bleeding/bruising Skin: No rash Objective Vital Signs Last Vital Signs Documentation Date Time Temp Pulse Resp B/P (MAP) Pulse Ox O2 Delivery O2 Flow Rate FiO2 12/13/16 08:00 36.9 65 22 144/87 (106) 95 Room Air 12/13/16 06:00 2.0 Physical Exam: General Appearance: no apparent distress Neck: no JVD Respiratory/Chest: no respiratory distress, + crackles (few crackles at bases bilaterally) Cardiovascular: regular rate, rhythm, no edema Abdomen: normal bowel sounds, non tender, soft Extremities: normal range of motion Neurologic/Psychiatric: reprint sorter II-XII nml as tested, no motor/sensory deficits Skin: normal color, warm/dry Assessment and Plan 1. NSTEMI -- s/p PCI with THOMAS to mid-distal circumflex 2. Severe residual coronary artery disease 3. Intra-procedure VF s/p defibrillation 4. Hypertension Patient largely chest pain free this AM. Troponin peaked. Hemodynamically and electrically stable. -- echo today -- continue DAPT with ASA/Ticagrelor -- can discontinue amiodarone this morning after 24 hours. -- increase metoprolol to 50mg bid -- continue high-intensity statin -- medical management of residual severe CAD for now. From a cardiac standpoint OK to transfer to telemetry today. Medications: Current Inpatient Medications Medications (Trade) Dose Ordered Sig/Mega Route Start Time Stop Time Status Last Admin Dose Admin Acetaminophen (Tylenol Tab) 650 mg Q4H PRN PO 12/12/16 10:00 01/11/17 09:59 Morphine Sulfate (MoRPHine SULFATE INJ) 2 mg Q2H PRN IV 12/12/16 10:00 12/26/16 09:59 12/12/16 22:19 2 MG Morphine Sulfate (MoRPHine SULFATE INJ) 4 mg Q2H PRN IV 12/12/16 10:00 12/26/16 09:59 Atorvastatin Calcium (Lipitor Tab) 80 mg QAM PO 12/13/16 09:00 01/12/17 08:59 12/13/16 08:23 80 MG Metoprolol Tartrate (Lopressor Tab) 25 mg Q12 PO 12/12/16 21:00 01/11/17 20:59 12/13/16 08:22 25 MG Lisinopril (Zestril Tab) 5 mg QAM PO 12/13/16 09:00 01/12/17 08:59 12/13/16 08:22 5 MG Ticagrelor (Brilinta Tab) 90 mg BID PO 12/12/16 21:00 01/11/17 20:59 12/13/16 08:22 90 MG Aspirin (Ecotrin Tab) 81 mg QAM PO 12/13/16 09:00 01/12/17 08:59 12/13/16 08:23 81 MG Amiodarone HCL/ Dextrose 200 ml @ 16.7 mls/hr [id number] IV 12/12/16 17:30 01/11/17 17:29 12/13/16 02:49 16.7 MLS/HR Prochlorperazine Edisylate 5 mg/ Syringe 5 ml @ 5 mls/min Q6 PRN IV 12/12/16 12:45 01/11/17 12:44 12/12/16 17:07 5 MLS/MIN Pantoprazole Sodium 40 mg/ Syringe 10 ml @ 5 mls/min DAILY@11 IV 12/13/16 11:00 01/12/17 10:59 Ondansetron HCl (Zofran Inj) 4 mg Q4H PRN IV 12/12/16 18:00 01/11/17 17:59 12/13/16 04:06 4 MG Potassium Chloride 10 meq/ Prmx 100 ml @ 100 mls/hr Q1H IV 12/13/16 08:30 12/13/16 12:29 Lab Results: 12/13/16 05:20 Red Blood Count 4.84, Mean Corpuscular Volume 90.3, Mean Corpuscular Hemoglobin 32.9, Mean Corpuscular Hemoglobin Concent 36.4, Mean Platelet Volume 9.9, Neutrophils (%) (Auto) 80.4, Lymphocytes (%) (Auto) 10.5, Monocytes (%) (Auto) 8.2, Eosinophils (%) (Auto) 0.4, Basophils (%) (Auto) 0.1, Neutrophils # (Auto) 9.85, Lymphocytes # (Auto) 1.29, Monocytes # (Auto) 1.00, Eosinophils # (Auto) 0.05, Basophils # (Auto) 0.01 12/13/16 05:19 Test 12/12/16 10:03 12/12/16 21:30 12/13/16 05:19 12/13/16 05:20 Kaolin Activated Coagulation Time 230 SECONDS (94-140) Bedside Glucose 113 mg/dl (70-99) Anion Gap 8.0 mmol/L (3-11) Est Creatinine Clear Calc Drug Dose 80.4 ml/min Estimated GFR () 98.6 Estimated GFR (Non- 85.1 BUN/Creatinine Ratio 8.2 (10-20) Calcium Level 8.3 mg/dl (8.5-10.1) Total Creatine Kinase 388 U/L (39-308) Creatine Kinase MB 37.2 ng/ml (0.5-3.6) Creatine Kinase MB Ratio 9.6 (0-3.0) Troponin I 6.140 ng/ml (0-0.045) LDL Cholesterol Direct 105 mg/dl White Blood Count 12.25 K/uL (4.8-10.8) Red Blood Count 4.84 M/uL (4.7-6.1) Hemoglobin 15.9 g/dL (14.0-18.0) Hematocrit 43.7 % (42-52) Mean Corpuscular Volume 90.3 fL (80-100) Mean Corpuscular Hemoglobin 32.9 pg (25-34) Mean Corpuscular Hemoglobin Concent 36.4 g/dl (32-36) Platelet Count 232 K/uL (130-400) Mean Platelet Volume 9.9 fL (7.4-10.4) Neutrophils (%) (Auto) 80.4 % Lymphocytes (%) (Auto) 10.5 % Monocytes (%) (Auto) 8.2 % Eosinophils (%) (Auto) 0.4 % Basophils (%) (Auto) 0.1 % Neutrophils # (Auto) 9.85 K/uL (1.4-6.5) Lymphocytes # (Auto) 1.29 K/uL (1.2-3.4) Monocytes # (Auto) 1.00 K/uL (0.11-0.59) Eosinophils # (Auto) 0.05 K/uL (0-0.5) Basophils # (Auto) 0.01 K/uL (0-0.2) RDW Standard Deviation 46.4 fL (36.4-46.3) RDW Coefficient of Variation 14.1 % (11.5-14.5) Immature Granulocyte % (Auto) 0.4 % Immature Granulocyte # (Auto) 0.05 K/uL (0.00-0.02) Estimated Average Glucose 103 mg/dl Hemoglobin A1c 5.2 % (4.5-5.6) Date/Time Source Procedure Growth Status 12/12/16 11:45 Nasal MRSA DNA Surveillance Screen - Final Specimen Negative for MRSA by DNA Probe Complete
--- NOTE | 2016-12-13 10:10 | Progress Note ---
Subjective Date of Service: Dec 13, 2016. Subjective Pt evaluation today including: conversation w/ patient, physical exam, lab review, conversation w/ [employer] consultant, review of inpatient medication list Pain: no chest pain PO Intake: adequate Voiding: no voiding problems patient doing well, no chest pain or pressure ambulating in room eating well, urinating well reviewed labs, Cr stable after PCI mild leukocytosis, likely reactive discussed case with Dr. Guerrero Problem List Medical Problems: (1) Acute electrocardiogram changes Status: Acute (2) Precordial chest pain Status: Acute Review of Systems Constitutional: + weakness, + fatigue Musculoskeletal: + joint pain (mild back pain, intermittent, chronic issue) All Other Systems: Reviewed and Negative Medications Current Inpatient Medications Medications (Trade) Dose Ordered Sig/Mega Route Start Time Stop Time Status Last Admin Dose Admin Acetaminophen (Tylenol Tab) 650 mg Q4H PRN PO 12/12/16 10:00 01/11/17 09:59 Morphine Sulfate (MoRPHine SULFATE INJ) 2 mg Q2H PRN IV 12/12/16 10:00 12/26/16 09:59 12/12/16 22:19 2 MG Morphine Sulfate (MoRPHine SULFATE INJ) 4 mg Q2H PRN IV 12/12/16 10:00 12/26/16 09:59 Atorvastatin Calcium (Lipitor Tab) 80 mg QAM PO 12/13/16 09:00 01/12/17 08:59 12/13/16 08:23 80 MG Metoprolol Tartrate (Lopressor Tab) 25 mg Q12 PO 12/12/16 21:00 01/11/17 20:59 12/13/16 08:22 25 MG Lisinopril (Zestril Tab) 5 mg QAM PO 12/13/16 09:00 01/12/17 08:59 12/13/16 08:22 5 MG Ticagrelor (Brilinta Tab) 90 mg BID PO 12/12/16 21:00 01/11/17 20:59 12/13/16 08:22 90 MG Aspirin (Ecotrin Tab) 81 mg QAM PO 12/13/16 09:00 01/12/17 08:59 12/13/16 08:23 81 MG Amiodarone HCL/ Dextrose 200 ml @ 16.7 mls/hr [id number] IV 12/12/16 17:30 01/11/17 17:29 12/13/16 02:49 16.7 MLS/HR Prochlorperazine Edisylate 5 mg/ Syringe 5 ml @ 5 mls/min Q6 PRN IV 12/12/16 12:45 01/11/17 12:44 12/12/16 17:07 5 MLS/MIN Pantoprazole Sodium 40 mg/ Syringe 10 ml @ 5 mls/min DAILY@11 IV 12/13/16 11:00 01/12/17 10:59 Ondansetron HCl (Zofran Inj) 4 mg Q4H PRN IV 12/12/16 18:00 01/11/17 17:59 12/13/16 04:06 4 MG Potassium Chloride 10 meq/ Prmx 100 ml @ 100 mls/hr Q1H IV 12/13/16 08:30 12/13/16 12:29 12/13/16 09:56 100 MLS/HR Objective Vital Signs Date Time Temp Pulse Resp B/P (MAP) Pulse Ox O2 Delivery O2 Flow Rate FiO2 12/13/16 08:00 36.9 65 22 144/87 (106) 95 Room Air 12/13/16 08:00 Room Air 12/13/16 08:00 Room Air 12/13/16 06:00 62 14 137/81 (99) 97 Nasal Cannula 2.0 12/13/16 04:00 Nasal Cannula 2.0 12/13/16 04:00 37.0 53 14 141/85 (103) 96 Nasal Cannula 2.0 12/13/16 02:00 56 12 130/82 (98) 95 Nasal Cannula 2.0 12/13/16 01:00 49 12 121/79 (93) 95 Nasal Cannula 2.0 12/13/16 00:00 Nasal Cannula 2.0 12/13/16 00:00 37.0 56 16 132/91 (105) 94 Nasal Cannula 2.0 12/12/16 23:00 54 14 128/82 (97) 95 Nasal Cannula 2.0 12/12/16 22:00 68 14 144/90 (108) 93 Nasal Cannula 2.0 12/12/16 20:00 36.9 59 14 125/76 (92) 97 Nasal Cannula 2.0 12/12/16 20:00 Nasal Cannula 2.0 12/12/16 19:00 57 14 126/81 (96) 97 Nasal Cannula 2.0 12/12/16 18:00 67 23 141/90 (107) 97 Nasal Cannula 2.0 12/12/16 17:01 57 17 149/89 (109) 96 Nasal Cannula 2.0 12/12/16 16:01 36.8 52 13 130/82 (98) 96 Nasal Cannula 2.0 12/12/16 16:00 Nasal Cannula 2.0 12/12/16 15:01 56 14 128/85 (99) 98 Nasal Cannula 2.0 12/12/16 14:31 54 12 140/81 (100) 97 Nasal Cannula 2.0 12/12/16 14:01 54 12 127/79 (95) 97 Nasal Cannula 2.0 12/12/16 13:31 54 12 136/80 (98) 97 Nasal Cannula 2.0 12/12/16 13:01 58 11 117/80 (92) 97 Nasal Cannula 2.0 12/12/16 12:31 67 17 140/86 (104) 95 Nasal Cannula 2.0 12/12/16 12:16 65 17 138/79 (98) 95 Nasal Cannula 2.0 12/12/16 12:01 62 18 134/86 (102) 96 Nasal Cannula 2.0 12/12/16 11:46 66 19 142/93 (109) 96 Nasal Cannula 2.0 12/12/16 11:31 60 16 146/88 (107) 96 Nasal Cannula 2.0 12/12/16 11:03 36.4 58 12 135/86 96 Nasal Cannula 2.0 12/12/16 11:01 60 17 135/86 (102) 96 Nasal Cannula 2.0 12/12/16 10:58 36.4 64 15 138/82 (100) 95 Nasal Cannula 2.0 12/12/16 10:42 63 16 132/81 (98) 95 Room Air 12/12/16 10:27 60 16 131/80 (97) 99 Mask 6 Physical Exam General Appearance: WD/WN, no apparent distress Eyes: normal inspection, EOMI, sclerae normal ENT: normal ENT inspection, hearing grossly normal, pharynx normal Neck: supple, no adenopathy, no JVD, trachea midline Respiratory/Chest: chest non-tender, lungs clear, normal breath sounds, no respiratory distress, no accessory muscle use Cardiovascular: regular rate, rhythm, no edema, no gallop, no JVD, no murmur Abdomen: normal bowel sounds, non tender, soft, no organomegaly Extremities: normal range of motion, non-tender, normal inspection, no pedal edema, no calf tenderness Neurologic/Psychiatric: home care liaison II-XII nml as tested, no motor/sensory deficits, alert, normal mood/affect, oriented x 3 Skin: normal color, warm/dry, no rash Lymphatic: no adenopathy Laboratory Results Last 24 Hours Test 12/12/16 11:19 12/12/16 16:32 12/12/16 18:27 12/12/16 21:30 Troponin I 2.230 ng/ml 8.250 ng/ml Bedside Glucose 105 mg/dl 113 mg/dl Total Creatine Kinase 425 U/L Creatine Kinase MB 41.1 ng/ml Creatine Kinase MB Ratio 9.7 Test 12/13/16 00:19 12/13/16 05:19 12/13/16 05:20 Total Creatine Kinase 444 U/L 388 U/L Creatine Kinase MB 43.9 ng/ml 37.2 ng/ml Creatine Kinase MB Ratio 9.9 9.6 Troponin I 7.900 ng/ml 6.140 ng/ml Sodium Level 136 mmol/L Potassium Level 3.4 mmol/L Chloride Level 103 mmol/L Carbon Dioxide Level 25 mmol/L Anion Gap 8.0 mmol/L Blood Urea Nitrogen 7 mg/dl Creatinine 0.91 mg/dl Est Creatinine Clear Calc Drug Dose 80.4 ml/min Estimated GFR () 98.6 Estimated GFR (Non- 85.1 BUN/Creatinine Ratio 8.2 Random Glucose 109 mg/dl Calcium Level 8.3 mg/dl LDL Cholesterol Direct 105 mg/dl White Blood Count 12.25 K/uL Red Blood Count 4.84 M/uL Hemoglobin 15.9 g/dL Hematocrit 43.7 % Mean Corpuscular Volume 90.3 fL Mean Corpuscular Hemoglobin 32.9 pg Mean Corpuscular Hemoglobin Concent 36.4 g/dl Platelet Count 232 K/uL Mean Platelet Volume 9.9 fL Neutrophils (%) (Auto) 80.4 % Lymphocytes (%) (Auto) 10.5 % Monocytes (%) (Auto) 8.2 % Eosinophils (%) (Auto) 0.4 % Basophils (%) (Auto) 0.1 % Neutrophils # (Auto) 9.85 K/uL Lymphocytes # (Auto) 1.29 K/uL Monocytes # (Auto) 1.00 K/uL Eosinophils # (Auto) 0.05 K/uL Basophils # (Auto) 0.01 K/uL RDW Standard Deviation 46.4 fL RDW Coefficient of Variation 14.1 % Immature Granulocyte % (Auto) 0.4 % Immature Granulocyte # (Auto) 0.05 K/uL Estimated Average Glucose 103 mg/dl Hemoglobin A1c 5.2 % Assessment and Plan 71 yo male with NSTEMI - NSTEMI: treated with cardiac catheterization, found to have three vessel disease > 90% lesion in left circumflex, treated with bare metal stent, on aspirin and Brilinta Lipitor 80mg daily no chest pain in 24 hours, vitals stable plan for echocardiogram today transfer to tele today, likely for d/c home in another 24 hours - Ventricular fibrillation, during procedure: one episode that resolved with defibrillation, occurred after balloon angioplasty to the left circumflex Amiodarone drip but can discontinue today - HTN: BP mildly elevated increase metoprolol to 50mg BID and continue Lisinopril 5mg plan: transfer to tele, f/u on echocardiogram, d/c home tomorrow if he remains stable
--- NOTE | 2016-12-13 10:20 | Critical Care Progress Note ---
Critical Care Progress Note Date of Service Dec 13, 2016. Attending Dr. Chaparro Subjective the pt has been chest pain free, however, he continued to have muscular back pain and pectorales pain , likely from recent defibrillation. nausea and vomiting overnight, reactive, responded to compazine. Objective as above symptomatically. VSS, slight bradycardia ( meds related), no JVP, no bruit, S1S2 RRR, lungs are clear, abdomen is benign, no edema. neuro is intact. psych with normal effect. the rest of his ROS including 10 systems were unremarkable by symptoms and exam. Current SOFA Score SOFA Score Response (Comments) Value PaO2/FiO2 (mmHg) < 400 1 SaO2 / FIO2 221 - 301 1 Platelets (x10) > 150 0 Bilirubin (mg/dL) < 1.2 0 Vincent Coma Score 15 0 Level of Hypotension No Hypotension 0 Creatinine (mg/dL) < 1.2 0 Total 2 Assessment & Plan 1- NSTEMI, s/p RCA stent. LAD lesion. trop peak at 7. no new EKG changes. 2- ACS, resolving. 3- V fib , s/p defibrillation. 4- HTN, controlled. 5- persistent NV could be related to meds ( Amio drip), or post cardioversion, it should spontaneously subssided. Plan: 1- continue Anti emetics. 2- Amiodarone drip to finish the protocol. 3- appreciate Dr. Guerrero input. 4- Brilinta and ASA. 5- B blockers as tolerated. 6- Telemetry floor. 7- continue DVT prophylaxis. 8- PPI. 9- discussed with the staff on rounds. Consults & Procedures Consultants: Dr. Guerrero. Procedures: PCI Data Medications: Current Inpatient Medications Medications (Trade) Dose Ordered Sig/Mega Route Start Time Stop Time Status Last Admin Dose Admin Acetaminophen (Tylenol Tab) 650 mg Q4H PRN PO 12/12/16 10:00 01/11/17 09:59 Morphine Sulfate (MoRPHine SULFATE INJ) 2 mg Q2H PRN IV 12/12/16 10:00 12/26/16 09:59 12/12/16 22:19 2 MG Morphine Sulfate (MoRPHine SULFATE INJ) 4 mg Q2H PRN IV 12/12/16 10:00 12/26/16 09:59 Atorvastatin Calcium (Lipitor Tab) 80 mg QAM PO 12/13/16 09:00 01/12/17 08:59 12/13/16 08:23 80 MG Metoprolol Tartrate (Lopressor Tab) 25 mg Q12 PO 12/12/16 21:00 01/11/17 20:59 12/13/16 08:22 25 MG Lisinopril (Zestril Tab) 5 mg QAM PO 12/13/16 09:00 01/12/17 08:59 12/13/16 08:22 5 MG Ticagrelor (Brilinta Tab) 90 mg BID PO 12/12/16 21:00 01/11/17 20:59 12/13/16 08:22 90 MG Aspirin (Ecotrin Tab) 81 mg QAM PO 12/13/16 09:00 01/12/17 08:59 12/13/16 08:23 81 MG Amiodarone HCL/ Dextrose 200 ml @ 16.7 mls/hr [id number] IV 12/12/16 17:30 01/11/17 17:29 12/13/16 02:49 16.7 MLS/HR Prochlorperazine Edisylate 5 mg/ Syringe 5 ml @ 5 mls/min Q6 PRN IV 12/12/16 12:45 01/11/17 12:44 12/12/16 17:07 5 MLS/MIN Pantoprazole Sodium 40 mg/ Syringe 10 ml @ 5 mls/min DAILY@11 IV 12/13/16 11:00 01/12/17 10:59 Ondansetron HCl (Zofran Inj) 4 mg Q4H PRN IV 12/12/16 18:00 01/11/17 17:59 12/13/16 04:06 4 MG Potassium Chloride 10 meq/ Prmx 100 ml @ 100 mls/hr Q1H IV 12/13/16 08:30 12/13/16 12:29 12/13/16 09:56 100 MLS/HR Vital Signs: Date Time Temp Pulse Resp B/P (MAP) Pulse Ox O2 Delivery O2 Flow Rate FiO2 12/13/16 08:00 36.9 65 22 144/87 (106) 95 Room Air 12/13/16 08:00 Room Air 12/13/16 08:00 Room Air 12/13/16 06:00 62 14 137/81 (99) 97 Nasal Cannula 2.0 12/13/16 04:00 Nasal Cannula 2.0 12/13/16 04:00 37.0 53 14 141/85 (103) 96 Nasal Cannula 2.0 12/13/16 02:00 56 12 130/82 (98) 95 Nasal Cannula 2.0 12/13/16 01:00 49 12 121/79 (93) 95 Nasal Cannula 2.0 12/13/16 00:00 Nasal Cannula 2.0 12/13/16 00:00 37.0 56 16 132/91 (105) 94 Nasal Cannula 2.0 12/12/16 23:00 54 14 128/82 (97) 95 Nasal Cannula 2.0 12/12/16 22:00 68 14 144/90 (108) 93 Nasal Cannula 2.0 12/12/16 20:00 36.9 59 14 125/76 (92) 97 Nasal Cannula 2.0 12/12/16 20:00 Nasal Cannula 2.0 12/12/16 19:00 57 14 126/81 (96) 97 Nasal Cannula 2.0 12/12/16 18:00 67 23 141/90 (107) 97 Nasal Cannula 2.0 12/12/16 17:01 57 17 149/89 (109) 96 Nasal Cannula 2.0 12/12/16 16:01 36.8 52 13 130/82 (98) 96 Nasal Cannula 2.0 12/12/16 16:00 Nasal Cannula 2.0 12/12/16 15:01 56 14 128/85 (99) 98 Nasal Cannula 2.0 12/12/16 14:31 54 12 140/81 (100) 97 Nasal Cannula 2.0 12/12/16 14:01 54 12 127/79 (95) 97 Nasal Cannula 2.0 12/12/16 13:31 54 12 136/80 (98) 97 Nasal Cannula 2.0 12/12/16 13:01 58 11 117/80 (92) 97 Nasal Cannula 2.0 12/12/16 12:31 67 17 140/86 (104) 95 Nasal Cannula 2.0 12/12/16 12:16 65 17 138/79 (98) 95 Nasal Cannula 2.0 12/12/16 12:01 62 18 134/86 (102) 96 Nasal Cannula 2.0 12/12/16 11:46 66 19 142/93 (109) 96 Nasal Cannula 2.0 12/12/16 11:31 60 16 146/88 (107) 96 Nasal Cannula 2.0 12/12/16 11:03 36.4 58 12 135/86 96 Nasal Cannula 2.0 12/12/16 11:01 60 17 135/86 (102) 96 Nasal Cannula 2.0 12/12/16 10:58 36.4 64 15 138/82 (100) 95 Nasal Cannula 2.0 12/12/16 10:42 63 16 132/81 (98) 95 Room Air 12/12/16 10:27 60 16 131/80 (97) 99 Mask 6 Laboratory Results: Last 24 Hours Test 12/12/16 11:19 12/12/16 16:32 12/12/16 18:27 12/12/16 21:30 Troponin I 2.230 ng/ml 8.250 ng/ml Bedside Glucose 105 mg/dl 113 mg/dl Total Creatine Kinase 425 U/L Creatine Kinase MB 41.1 ng/ml Creatine Kinase MB Ratio 9.7 Test 12/13/16 00:19 12/13/16 05:19 12/13/16 05:20 Total Creatine Kinase 444 U/L 388 U/L Creatine Kinase MB 43.9 ng/ml 37.2 ng/ml Creatine Kinase MB Ratio 9.9 9.6 Troponin I 7.900 ng/ml 6.140 ng/ml Sodium Level 136 mmol/L Potassium Level 3.4 mmol/L Chloride Level 103 mmol/L Carbon Dioxide Level 25 mmol/L Anion Gap 8.0 mmol/L Blood Urea Nitrogen 7 mg/dl Creatinine 0.91 mg/dl Est Creatinine Clear Calc Drug Dose 80.4 ml/min Estimated GFR () 98.6 Estimated GFR (Non- 85.1 BUN/Creatinine Ratio 8.2 Random Glucose 109 mg/dl Calcium Level 8.3 mg/dl LDL Cholesterol Direct 105 mg/dl White Blood Count 12.25 K/uL Red Blood Count 4.84 M/uL Hemoglobin 15.9 g/dL Hematocrit 43.7 % Mean Corpuscular Volume 90.3 fL Mean Corpuscular Hemoglobin 32.9 pg Mean Corpuscular Hemoglobin Concent 36.4 g/dl Platelet Count 232 K/uL Mean Platelet Volume 9.9 fL Neutrophils (%) (Auto) 80.4 % Lymphocytes (%) (Auto) 10.5 % Monocytes (%) (Auto) 8.2 % Eosinophils (%) (Auto) 0.4 % Basophils (%) (Auto) 0.1 % Neutrophils # (Auto) 9.85 K/uL Lymphocytes # (Auto) 1.29 K/uL Monocytes # (Auto) 1.00 K/uL Eosinophils # (Auto) 0.05 K/uL Basophils # (Auto) 0.01 K/uL RDW Standard Deviation 46.4 fL RDW Coefficient of Variation 14.1 % Immature Granulocyte % (Auto) 0.4 % Immature Granulocyte # (Auto) 0.05 K/uL Estimated Average Glucose 103 mg/dl Hemoglobin A1c 5.2 %
[2016-12-13] MEDS ORDERED: PANTOprazole INJ 40 MG in SYRINGE 0 ML IV SCH (11:00)
[2016-12-13] MEDS ORDERED: POLYETHYLENE (MIRALAX) 17 GM PACK ONE (11:16)
--- NOTE | 2016-12-13 11:56 | ECHOCARDIOGRAM REPORT ---
*NOTICE TO RECEIVING CONSTITUTION PARTY AGENCY This information is strictly Confidential and protected under [place] law. [place] law prohibits you from making any further disclosure of this information unless further disclosure is expressly permitted by the written consent of the person to whom it pertains or is authorized by law. A general authorization for the release of medical or other information is not sufficient for this purpose. Hospital accepts no responsibility if the information is made available to any other person, INCLUDING THE PATIENT. Interpretation Summary * Name: GABRIEL AGRAWAL Study Date: 12/13/2016 08:48 AM BP: 137/81 mmHg * [facility] HR: 64 * : 1945 (M/d/yyy) Gender: Male Height: 70 in * Age: 71 yrs Ethnicity: CA Weight: 192 lb * Ordering Physician: Danya Chaparro * Referring Physician: Self, Referred * Performed By: Shade Cruz RCS * * Reason For Study: Chest pain * BSA: 2.1 m2 * -- Conclusions -- * Left ventricular systolic function is normal. * No regional wall motion abnormalities noted. * Ejection Fraction = 55-60%. * There is mild mitral regurgitation. Procedure Details * A contrast injection of Definity was performed to improve assessment for apical thrombus. * Contrast was injected into an intravenous site in the left arm. * One vial of Definity ultrasound contrast was diluted in normal saline to a total volume of 10 ml. A total of '4' ml of solution was administered during imaging. * Lot # [id number] of Definity utilized for procedure. * Expiration date . * The attending nurse who injected the contrast agent was ALEXANDRE EDUARDO. Left Ventricle * The left ventricle is normal in size. * There is normal left ventricular wall thickness. * Ejection Fraction = 55-60%. * Left ventricular systolic function is normal. * No regional wall motion abnormalities noted. Right Ventricle * The right ventricle is normal size. * The right ventricular systolic function is normal as assessed by tricuspid annular plane systolic excursion (TAPSE) (normal >1.5 cm). Atria * Borderline left atrial enlargement. * Right atrial size is normal. * There is no evidence of atrial septal defect, but resolution does not allow assessment for a patent foramen ovale. Mitral Valve * The mitral valve is normal in structure and function. * There is no mitral valve stenosis. * There is mild mitral regurgitation. Tricuspid Valve * The tricuspid valve is not well visualized, but is grossly normal. * There is no tricuspid stenosis. * Significant tricuspid regurgitation is absent. Aortic Valve * The aortic valve is not well visualized. * The aortic valve opens well. * No hemodynamically significant valvular aortic stenosis. * Trace aortic regurgitation. Pulmonic Valve * The pulmonary valve is not well seen, but the Doppler examination is normal without significant regurgitation or stenosis. Great Vessels * The aortic root is normal size. * The pulmonary is not well visualized. Pericardium/Pleural * There is no pericardial effusion. MMode 2D Measurements and Calculations IVSd 1.0 cm LVIDd 4.8 cm LVIDs 2.7 cm LVPWd 0.86 cm IVS/LVPW 1.2 FS 43.7 % EDV(Teich) 108.9 ml ESV(Teich) 27.4 ml EF(Teich) 74.8 % EDV(cubed) 112.4 ml ESV(cubed) 20.0 ml EF(cubed) 82.2 % LV mass(C)d 156.6 grams LV mass(C)dI 76.3 grams/m\S\2 SV(Teich) 81.5 ml SI(Teich) 39.7 ml/m\S\2 SV(cubed) 92.4 ml SI(cubed) 45.0 ml/m\S\2 Ao root diam 3.3 cm Ao root area 8.7 cm\S\2 LVOT diam 2.0 cm LVOT area 3.1 cm\S\2 LVAd ap4 35.6 cm\S\2 LVLd ap4 8.5 cm EDV(MOD-sp4) 121.6 ml EDV(sp4-el) 127.1 ml LVAs ap4 20.0 cm\S\2 LVLs ap4 7.2 cm ESV(MOD-sp4) 48.5 ml ESV(sp4-el) 47.6 ml EF(MOD-sp4) 60.1 % EF(sp4-el) 62.6 % LVAd ap2 28.4 cm\S\2 LVLd ap2 8.4 cm EDV(MOD-sp2) 87.5 ml EDV(sp2-el) 81.9 ml LVAs ap2 16.0 cm\S\2 LVLs ap2 7.3 cm ESV(MOD-sp2) 32.8 ml ESV(sp2-el) 29.8 ml EF(MOD-sp2) 62.5 % EF(sp2-el) 63.7 % LVLd %diff -1.14 % EDV(MOD-bp) 102.2 ml LVLs %diff 2.6 % ESV(MOD-bp) 39.1 ml EF(MOD-bp) 61.8 % SV(MOD-sp4) 73.1 ml SI(MOD-sp4) 35.6 ml/m\S\2 SV(MOD-sp2) 54.7 ml SI(MOD-sp2) 26.7 ml/m\S\2 SV(MOD-bp) 63.1 ml SI(MOD-bp) 30.8 ml/m\S\2 SV(sp4-el) 79.5 ml SI(sp4-el) 38.8 ml/m\S\2 SV(sp2-el) 52.2 ml SI(sp2-el) 25.4 ml/m\S\2 Doppler Measurements and Calculations MV E max geetha 79.5 cm/sec MV A max geetha 75.7 cm/sec MV E/A 1.1 MV dec time 0.21 sec Ao V2 max 120.8 cm/sec Ao max PG 5.8 mmHg Ao max PG (full) 1.4 mmHg ROBBIN(V,A) 2.7 cm\S\2 ROBBIN(V,D) 2.7 cm\S\2 LV V1 max PG 4.4 mmHg LV V1 max 104.8 cm/sec TR max geetha 207.7 cm/sec
[2016-12-13 12:40] LABS: CKMB/CK RATIO 8.8 (0-3.0)
--- NOTE | 2016-12-13 16:21 | Medical Student: [facility] ---
Med Student Progress Note Date of Service Dec 13, 2016. 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 He was immediately brought to the collaborative [facility] and bare metal stent was put in. During the procedure, he developed ventricle fibrillation followed by 200J shock once before converting back to the sinus rhythm. He was found to have multiple stenotic areas within LAD, left circumflex (99% occlusion), left marginal, and RCA. Today, he feels fine. He still has occasional chest tightness. [place] nauseous overnight, which is getting better.Denies RITTER, dizziness, SOB, pain, bowels or urination changes. Review of Systems Constitutional: No fever, No chills Respiratory: No cough, No shortness of breath Cardiac: + chest pain (occasional) Abdomen: + nausea, No pain, No vomiting, No constipation Male : No dysuria Objective Vital Signs Date Time Temp Pulse Resp B/P (MAP) Pulse Ox O2 Delivery O2 Flow Rate FiO2 12/13/16 15:19 Room Air 12/13/16 15:19 36.8 60 20 114/75 (88) 95 Room Air 12/13/16 12:00 Room Air 12/13/16 12:00 36.8 58 20 112/71 (85) 95 Room Air 12/13/16 10:00 54 15 131/82 (98) 94 Room Air 12/13/16 08:00 36.9 65 22 144/87 (106) 95 Room Air 12/13/16 08:00 Room Air 12/13/16 08:00 Room Air 12/13/16 06:00 62 14 137/81 (99) 97 Nasal Cannula 2.0 12/13/16 04:00 Nasal Cannula 2.0 12/13/16 04:00 37.0 53 14 141/85 (103) 96 Nasal Cannula 2.0 12/13/16 02:00 56 12 130/82 (98) 95 Nasal Cannula 2.0 12/13/16 01:00 49 12 121/79 (93) 95 Nasal Cannula 2.0 12/13/16 00:00 Nasal Cannula 2.0 12/13/16 00:00 37.0 56 16 132/91 (105) 94 Nasal Cannula 2.0 12/12/16 23:00 54 14 128/82 (97) 95 Nasal Cannula 2.0 12/12/16 22:00 68 14 144/90 (108) 93 Nasal Cannula 2.0 12/12/16 20:00 36.9 59 14 125/76 (92) 97 Nasal Cannula 2.0 12/12/16 20:00 Nasal Cannula 2.0 12/12/16 19:00 57 14 126/81 (96) 97 Nasal Cannula 2.0 12/12/16 18:00 67 23 141/90 (107) 97 Nasal Cannula 2.0 12/12/16 17:01 57 17 149/89 (109) 96 Nasal Cannula 2.0 Physical Exam General Appearance: no apparent distress Eyes: bilateral eyes normal inspection Respiratory/Chest: lungs clear, normal breath sounds, no respiratory distress Cardiovascular: regular rate, rhythm, no edema, no murmur Abdomen: normal bowel sounds, soft Extremities: non-tender, no pedal edema Neurologic/Psychiatric: alert, normal mood/affect, oriented x 3 Laboratory Results Last 24 Hours Test 12/12/16 16:32 12/12/16 18:27 12/12/16 21:30 12/13/16 00:19 Bedside Glucose 105 mg/dl 113 mg/dl Total Creatine Kinase 425 U/L 444 U/L Creatine Kinase MB 41.1 ng/ml 43.9 ng/ml Creatine Kinase MB Ratio 9.7 9.9 Troponin I 8.250 ng/ml 7.900 ng/ml Test 12/13/16 05:19 12/13/16 05:20 12/13/16 11:25 12/13/16 11:53 Sodium Level 136 mmol/L Potassium Level 3.4 mmol/L Chloride Level 103 mmol/L Carbon Dioxide Level 25 mmol/L Anion Gap 8.0 mmol/L Blood Urea Nitrogen 7 mg/dl Creatinine 0.91 mg/dl Est Creatinine Clear Calc Drug Dose 80.4 ml/min Estimated GFR () 98.6 Estimated GFR (Non- 85.1 BUN/Creatinine Ratio 8.2 Random Glucose 109 mg/dl Calcium Level 8.3 mg/dl Total Creatine Kinase 388 U/L 344 U/L Creatine Kinase MB 37.2 ng/ml 30.2 ng/ml Creatine Kinase MB Ratio 9.6 8.8 Troponin I 6.140 ng/ml 4.030 ng/ml LDL Cholesterol Direct 105 mg/dl White Blood Count 12.25 K/uL Red Blood Count 4.84 M/uL Hemoglobin 15.9 g/dL Hematocrit 43.7 % Mean Corpuscular Volume 90.3 fL Mean Corpuscular Hemoglobin 32.9 pg Mean Corpuscular Hemoglobin Concent 36.4 g/dl Platelet Count 232 K/uL Mean Platelet Volume 9.9 fL Neutrophils (%) (Auto) 80.4 % Lymphocytes (%) (Auto) 10.5 % Monocytes (%) (Auto) 8.2 % Eosinophils (%) (Auto) 0.4 % Basophils (%) (Auto) 0.1 % Neutrophils # (Auto) 9.85 K/uL Lymphocytes # (Auto) 1.29 K/uL Monocytes # (Auto) 1.00 K/uL Eosinophils # (Auto) 0.05 K/uL Basophils # (Auto) 0.01 K/uL RDW Standard Deviation 46.4 fL RDW Coefficient of Variation 14.1 % Immature Granulocyte % (Auto) 0.4 % Immature Granulocyte # (Auto) 0.05 K/uL Estimated Average Glucose 103 mg/dl Hemoglobin A1c 5.2 % Bedside Glucose 125 mg/dl Medications Current Inpatient Medications Medications (Trade) Dose Ordered Sig/Mega Route Start Time Stop Time Status Last Admin Dose Admin Acetaminophen (Tylenol Tab) 650 mg Q4H PRN PO 12/12/16 10:00 01/11/17 09:59 Morphine Sulfate (MoRPHine SULFATE INJ) 2 mg Q2H PRN IV 12/12/16 10:00 12/26/16 09:59 12/12/16 22:19 2 MG Morphine Sulfate (MoRPHine SULFATE INJ) 4 mg Q2H PRN IV 12/12/16 10:00 12/26/16 09:59 Atorvastatin Calcium (Lipitor Tab) 80 mg QAM PO 12/13/16 09:00 01/12/17 08:59 12/13/16 08:23 80 MG Metoprolol Tartrate (Lopressor Tab) 25 mg Q12 PO 12/12/16 21:00 01/11/17 20:59 12/13/16 08:22 25 MG Lisinopril (Zestril Tab) 5 mg QAM PO 12/13/16 09:00 01/12/17 08:59 12/13/16 08:22 5 MG Ticagrelor (Brilinta Tab) 90 mg BID PO 12/12/16 21:00 01/11/17 20:59 12/13/16 08:22 90 MG Aspirin (Ecotrin Tab) 81 mg QAM PO 12/13/16 09:00 01/12/17 08:59 12/13/16 08:23 81 MG Prochlorperazine Edisylate 5 mg/ Syringe 5 ml @ 5 mls/min Q6 PRN IV 12/12/16 12:45 01/11/17 12:44 12/12/16 17:07 5 MLS/MIN Pantoprazole Sodium 40 mg/ Syringe 10 ml @ 5 mls/min DAILY@11 IV 12/13/16 11:00 01/12/17 10:59 12/13/16 11:14 5 MLS/MIN Ondansetron HCl (Zofran Inj) 4 mg Q4H PRN IV 12/12/16 18:00 01/11/17 17:59 12/13/16 04:06 4 MG Heparin Sodium (Porcine) (Heparin Sq 5000 Unit/0.5ml) 5,000 unit Q12 SQ 12/13/16 21:00 01/12/17 20:59 Polyethylene (Miralax Powder Packet) 17 gm DAILY PO 12/14/16 09:00 01/13/17 08:59 Assessment and Plan Assessment and Plan: Studies/Procedures CXR - negative Cardiac catheterization LM - Large caliber, 30-40% distal stenosis (CSA 8.6 mm2) LAD - 60-70% diffuse, mildly calcified ostial/proximal disease; small mid vessel with 60% diffuse disease, tapers before apex; moderate caliber 1st diagonal with 70-80% focal mid stenosis Circumflex - Moderate caliber, 60% ostial stenosis, 60% focal mid segment stenosis; mid-distal segment with 99% acute subtotal occlusion with distal JOSE 2 flow Ramus - Small vessel with diffuse 60-70% disease RCA - Dominant, large vessel, 60-70% distal segment stenosis before take-off of R-PDA; 70% focal mid R-PDA; diffuse disease in R-PLB2 Echo - EF 55-60%, mild mitral regurgitation, no wall motion abnormalities This is a 71 year-old male with history of HTN 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 NSTEMI Patient is stable overnight. - Continue metoprolol, statin, aspirin, ticagrelor and morphine - Continue heparin - Plan for CABG in 1 month. Hypokalemia - Will check BMP again tomorrow - Check Mg level Elevated WBC (12.25) and neutrophils (left shift) Patient does not have signs of infection - fever, sweat, chills, coughing, dysuria. This is probably due to stress. - Continue monitor CBC. DVT prophylaxis - Heparin
[2016-12-13] MEDS: HEPARIN SOD 5000 UNIT/0.5 ML CARP SQ SCH (20:39)
[2016-12-14] VITALS: BP 121/77; PULSE 60; TEMP 36.8; O2SAT 94
[2016-12-14 04:00] VITALS: BP 140/77; PULSE 65; TEMP 36.8; O2SAT 94
[2016-12-14 05:25] LABS: BASO % 0.2 %; BASO ABS # 0.02 K/uL (0-0.2); COMPLETE YES; EOS % 2.1 %; HEMATOCRIT 46.8 % (42-52); IG% 0.2 %; LYMPH % 19.3 %; LYMPH ABS # 1.78 K/uL (1.2-3.4); MEAN CELL VOLUME 91.9 fL (80-100); MEAN CORPUSCULAR HEMOGLOBIN 32.2 pg (25-34); MEAN PLATELET VOLUME 9.9 fL (7.4-10.4); MONO % 9.6 %; NEUT % 68.6 %; PLATELET COUNT 251 K/uL (130-400); RED BLOOD COUNT 5.09 M/uL (4.7-6.1); WHITE BLOOD COUNT 9.21 K/uL (4.8-10.8)
[2016-12-14 06:04] LABS: CALCIUM 9.3 mg/dl (8.5-10.1); CREATININE 1.1 mg/dl (0.60-1.40); POTASSIUM 3.8 mmol/L (3.5-5.1)
[2016-12-14] MEDS ORDERED: LPT40 PO (07:48)
[2016-12-14] MEDS ORDERED: NTRGSL/4 SL (07:48)
[2016-12-14] MEDS ORDERED: METO1TAB31 PO (07:48)
[2016-12-14] MEDS ORDERED: ASPEC81 PO (07:48)
[2016-12-14] MEDS ORDERED: LISI-461 PO (07:48)
[2016-12-14] MEDS ORDERED: BRL90 PO (07:48)
[2016-12-14 08:00] VITALS: BP 143/88; PULSE 66; TEMP 36.8; O2SAT 95
[2016-12-14] MEDS: ASPIRIN 81 MG ECTAB PO SCH (08:45)
[2016-12-14] MEDS: METOPROLOL TARTRATE 25 MG TAB PO SCH (08:45)
[2016-12-14] MEDS: TICAGRELOR 90 MG TAB PO SCH (08:45)
[2016-12-14] MEDS: LISINOPRIL 5 MG TAB PO SCH (08:45)
[2016-12-14] MEDS: ATORVASTATIN 40 MG TAB PO SCH (08:45)
[2016-12-14] MEDS: HEPARIN SOD 5000 UNIT/0.5 ML CARP SQ SCH (08:49)
[2016-12-14] MEDS ORDERED: POLYETHYLENE (MIRALAX) 17 GM PACK PO SCH (09:00)
--- NOTE | 2016-12-14 09:11 | Discharge Instructions ---
Discharge Instructions Date of Service Dec 14, 2016. Admission Reason for Admission: NSTEMI Discharge Discharge Diagnosis / Problem: NSTEMI, severe CAD, Hypertension Discharge Goals Goal(s): Decrease discomfort, Improve disease control, Specific goals (follow up with cardiology, cardiothoracic surgery) Activity Recommendations Activity Limitations: per Instructions/Follow-up section Lifting Limitations: none Exercise/Sports Limitations: gradually increase as tolerated May Resume Sexual Activity: after follow-up appointment Shower/Bathe: no limitations Driving or Machine Use: no limitations . Instructions / Follow-Up Instructions / Follow-Up Medications: - ASPIRIN: 81mg daily, enteric coated, over the counter - BRILINTA: 90mg twice a day, essential to maintain the stent that was placed - LIPITOR: 80mg daily, as we discussed, huge benefit to stabilize plaques in coronary arteries, watch for muscle cramps - TOPROL: 25mg daily, blood pressure medication that also decreases strain on heart - LISINOPRIL: 10mg daily, blood pressure medications that also has heart benefits, may need to increase dose for blood pressure control - NITROGLYCERIN: use under the tongue for chest pain or pressure, can repeat every 15 minutes for 3 doses In summary, you were found to have an NSTEMI (heart attack) and you were treated with a bare metal stent to your left circumflex for a lesion that was > 90% occluded. Further imaging of coronary arteries revealed that you have triple vessel disease and the recommendation would be for a CABG (bypass). Please take medications as prescribed. Eat low fat/cholesterol, low sodium diet. Light activity is okay but no strenuous exercise until you are seen by Dr. Guerrero in the office. If you have a recurrence of chest pain/pressure, please return to the ED for evaluation. FOLLOW UP - Dr. Guerrero in two weeks, his office will call for appointment - Cardiothoracic surgery, Dr. Guerrero will make referral Current Hospital Diet Patient's current hospital diet: AHA Diet (Heart Healthy) Discharge Diet Recommended Diet: AHA Diet (Heart Healthy) Procedures Procedures Performed: Left heart catheterization 12/12 Echocardiogram 12/13 Pending Studies Studies pending at discharge: no Laboratory Results Hemoglobin A1c Test 12/13/16 05:20 Range/Units Estimated Average Glucose 103 mg/dl Hemoglobin A1c 5.2 4.5-5.6 % Medical Emergencies . Who to Call and When: Medical Emergencies: If at any time you feel your situation is an emergency, please call 911 immediately. . Non-Emergent Contact Non-Emergency issues call your: Waiter/Waitress Counter Call Non-Emergent contact if: your pain is not controlled, you have any medication questions . . "Provider Documentation" section prepared by Oleg Sanders. . VTE Core Measure Inpt VTE Proph given/why not?: Unfractionated heparin SQ [place] Drug Monitoring Program Search Results: no issues identified
--- NOTE | 2016-12-14 09:47 | Cardiology Follow-Up ---
Subjective Subjective Date of Service: Dec 14, 2016. Pt evaluation today including: conversation w/ patient, conversation w/ family , physical exam, chart review, lab review, review of studies, review of inpatient medication list Additional Details: Patient feeling well. No recurrent chest pain. Up walking halls without issue. No access site complications. Tele Reviewed -- no events Problem List Medical Problems: (1) Acute electrocardiogram changes Status: Acute (2) Precordial chest pain Status: Acute Review of Systems Constitutional: No fever, No chills ENT: No hearing loss Respiratory: No cough, No shortness of breath Abdomen: + nausea, No pain, No vomiting, No constipation Musculoskeletal: + joint pain (mild back pain, intermittent, chronic issue) Male : No dysuria Heme: No abnormal bleeding/bruising Skin: No rash Objective Vital Signs Last Vital Signs Documentation Date Time Temp Pulse Resp B/P (MAP) Pulse Ox O2 Delivery O2 Flow Rate FiO2 12/14/16 04:00 36.8 65 15 140/77 (98) 94 Room Air 12/13/16 06:00 2.0 Physical Exam: General Appearance: no apparent distress Eyes: bilateral eyes normal inspection ENT: normal ENT inspection, hearing grossly normal, pharynx normal Neck: supple, no adenopathy, no JVD, trachea midline Respiratory/Chest: lungs clear, normal breath sounds, no respiratory distress Cardiovascular: regular rate, rhythm, no edema, no murmur Abdomen: normal bowel sounds, soft Extremities: non-tender, no pedal edema, + pertinent finding (right radial artery - no ecchymosis, hematoma. intact distal senstation, pulses) Neurologic/Psychiatric: alert, normal mood/affect, oriented x 3 Skin: normal color, warm/dry, no rash Lymphatic: no adenopathy Assessment and Plan 1. NSTEMI -- s/p PCI with THOMAS to mid-distal circumflex 2. Severe residual coronary artery disease 3. Intra-procedure VF s/p defibrillation 4. Hypertension Patient remains chest pain free, hemodynamically and electrically stable. Echo reviewed -- preserved LV function. No access site complications. Stable labs. From a cardiac standpoint OK with discharge today. Discharge on: -- DAPT with ASA/Ticagrelor -- increase metoprolol to 50mg bid -- continue atorvastatin 80mg -- continue current lisinopril 5mg Follow-up with me in 2 weeks. Will discuss cardiac rehab, medical management of residual severe CAD at that time. Medications: Current Inpatient Medications Medications (Trade) Dose Ordered Sig/Mega Route Start Time Stop Time Status Last Admin Dose Admin Acetaminophen (Tylenol Tab) 650 mg Q4H PRN PO 12/12/16 10:00 01/11/17 09:59 Morphine Sulfate (MoRPHine SULFATE INJ) 2 mg Q2H PRN IV 12/12/16 10:00 12/26/16 09:59 12/12/16 22:19 2 MG Morphine Sulfate (MoRPHine SULFATE INJ) 4 mg Q2H PRN IV 12/12/16 10:00 12/26/16 09:59 Atorvastatin Calcium (Lipitor Tab) 80 mg QAM PO 12/13/16 09:00 01/12/17 08:59 12/14/16 08:45 80 MG Metoprolol Tartrate (Lopressor Tab) 25 mg Q12 PO 12/12/16 21:00 01/11/17 20:59 12/14/16 08:45 25 MG Lisinopril (Zestril Tab) 5 mg QAM PO 12/13/16 09:00 01/12/17 08:59 12/14/16 08:45 5 MG Ticagrelor (Brilinta Tab) 90 mg BID PO 12/12/16 21:00 01/11/17 20:59 12/14/16 08:45 90 MG Aspirin (Ecotrin Tab) 81 mg QAM PO 12/13/16 09:00 01/12/17 08:59 12/14/16 08:45 81 MG Prochlorperazine Edisylate 5 mg/ Syringe 5 ml @ 5 mls/min Q6 PRN IV 12/12/16 12:45 01/11/17 12:44 12/12/16 17:07 5 MLS/MIN Ondansetron HCl (Zofran Inj) 4 mg Q4H PRN IV 12/12/16 18:00 01/11/17 17:59 12/13/16 04:06 4 MG Heparin Sodium (Porcine) (Heparin Sq 5000 Unit/0.5ml) 5,000 unit Q12 SQ 12/13/16 21:00 01/12/17 20:59 12/14/16 08:49 5,000 UNIT Polyethylene (Miralax Powder Packet) 17 gm DAILY PO 12/14/16 09:00 01/13/17 08:59 Lab Results: 12/14/16 05:09 Red Blood Count 5.09, Mean Corpuscular Volume 91.9, Mean Corpuscular Hemoglobin 32.2, Mean Corpuscular Hemoglobin Concent 35.0, Mean Platelet Volume 9.9, Neutrophils (%) (Auto) 68.6, Lymphocytes (%) (Auto) 19.3, Monocytes (%) (Auto) 9.6, Eosinophils (%) (Auto) 2.1, Basophils (%) (Auto) 0.2, Neutrophils # (Auto) 6.32, Lymphocytes # (Auto) 1.78, Monocytes # (Auto) 0.88, Eosinophils # (Auto) 0.19, Basophils # (Auto) 0.02 12/14/16 05:09 Test 12/13/16 11:25 12/13/16 11:53 12/14/16 05:09 Bedside Glucose 125 mg/dl (70-99) Total Creatine Kinase 344 U/L (39-308) Creatine Kinase MB 30.2 ng/ml (0.5-3.6) Creatine Kinase MB Ratio 8.8 (0-3.0) Troponin I 4.030 ng/ml (0-0.045) White Blood Count 9.21 K/uL (4.8-10.8) Red Blood Count 5.09 M/uL (4.7-6.1) Hemoglobin 16.4 g/dL (14.0-18.0) Hematocrit 46.8 % (42-52) Mean Corpuscular Volume 91.9 fL (80-100) Mean Corpuscular Hemoglobin 32.2 pg (25-34) Mean Corpuscular Hemoglobin Concent 35.0 g/dl (32-36) Platelet Count 251 K/uL (130-400) Mean Platelet Volume 9.9 fL (7.4-10.4) Neutrophils (%) (Auto) 68.6 % Lymphocytes (%) (Auto) 19.3 % Monocytes (%) (Auto) 9.6 % Eosinophils (%) (Auto) 2.1 % Basophils (%) (Auto) 0.2 % Neutrophils # (Auto) 6.32 K/uL (1.4-6.5) Lymphocytes # (Auto) 1.78 K/uL (1.2-3.4) Monocytes # (Auto) 0.88 K/uL (0.11-0.59) Eosinophils # (Auto) 0.19 K/uL (0-0.5) Basophils # (Auto) 0.02 K/uL (0-0.2) RDW Standard Deviation 47.1 fL (36.4-46.3) RDW Coefficient of Variation 13.9 % (11.5-14.5) Immature Granulocyte % (Auto) 0.2 % Immature Granulocyte # (Auto) 0.02 K/uL (0.00-0.02) Anion Gap 5.0 mmol/L (3-11) Est Creatinine Clear Calc Drug Dose 66.5 ml/min Estimated GFR () 78.4 Estimated GFR (Non- 67.7 BUN/Creatinine Ratio 9.0 (10-20) Calcium Level 9.3 mg/dl (8.5-10.1)
--- NOTE | 2016-12-14 10:03 | Discharge Summary ---
Discharge Summary Date of Service Dec 14, 2016. Discharge Summary Admission Date: Dec 12, 2016 at 09:53 Discharge Date: Dec 14, 2016 Discharge Disposition: Home Principal Diagnosis: NSTEMI Problems/Secondary Diagnoses: Hypertension Dyslipidemia Procedures: Left heart catheterization, see report for full details Echocardiogram, EF preserved, no wall motion abnormalities Consultations: Cardiology Intensive care Medication Reconciliation New Medications: Lisinopril (Lisinopril) 10 Mg Tab 10 MG PO DAILY for 30 Days, #30 TABS 3 Refills Metoprolol Succinate (Toprol Xl) 25 Mg Tab 1 TAB PO DAILY for 30 Days, #30 TAB 5 Refills Nitroglycerin (Nitrostat) 0.4 Mg Tab 1 TAB SL UD, #25 TAB 3 Refills Aspirin (Aspirin EC Low Dose) 81 Mg Ectab 81 MG PO QAM, #30 TABS 3 Refills Atorvastatin (Atorvastatin Calcium) 40 Mg Tab 80 MG PO QAM, #60 TAB 3 Refills Ticagrelor (Brilinta) 90 Mg Tab 90 MG PO BID, #60 TAB 1 Refill Discontinued Medications: Nifedipine (Procardia Xl Ext Rel) 60 Mg Tab 60 MG PO DAILY, TAB Discharge Exam Patient feeling well, no chest pain or pressure, ambulated around the RN station several times with no symptoms. Cleared for discharge by cardiology. Review of Systems: Constitutional: No fever, No chills, No sweats, No weight loss, No weakness , No fatigue, No problem reported Eyes: No worsening of vision, No eye pain, No redness, No discharge, No diplopia, No problem reported ENT: No hearing loss, No unusual epistaxis, No nasal symptoms, No sore throat, No tinnitus, No dental problems, No trouble swallowing, No problem reported Respiratory: No cough, No sputum, No wheezing, No shortness of breath, No dyspnea on exertion, No dyspnea at rest, No hemoptysis, No problem reported Cardiovascular: No chest pain, No orthopnea, No PND, No edema, No claudication, No palpitations, No problem reported Abdomen: No pain, No nausea, No vomiting, No diarrhea, No constipation, No GI bleeding, No problem reported Musculoskeletal: No joint pain, No muscle pain, No swelling, No calf pain, No problem reported Genitourinary - Female: No dysuria, No urinary frequency, No urinary urgency , No urinary incontinence, No urinary retention, No hematuria Neurologic: No memory loss, No paralysis, No weakness, No numbness/tingling , No vertigo, No balance problems, No problem reported Psychiatric: No depression symptoms, No anhedonism, No anxiety, No insomnia , No substance abuse, No problem reported Endocrine: No fatigue, No excessive thirst, No excessive urination, No problem reported Hematologic / Lymphatic: No abnormal bleeding/bruising, No clotting problems , No swollen lymph nodes, No night sweats, No problem reported Integumentary: No rash, No itch, No new/changing skin lesions, No color change, No bleeding, No problem reported Physical Exam: General Appearance: WD/WN, no apparent distress Eyes: normal inspection, EOMI, sclerae normal ENT: normal ENT inspection, hearing grossly normal, pharynx normal Neck: supple, no adenopathy, no JVD, trachea midline Respiratory/Chest: chest non-tender, lungs clear, normal breath sounds, no respiratory distress, no accessory muscle use Cardiovascular: regular rate, rhythm, no edema, no gallop, no JVD, no murmur , normal peripheral pulses Abdomen / GI: normal bowel sounds, non tender, soft, no organomegaly Extremities: normal inspection, no calf tenderness, normal capillary refill , no pedal edema, normal range of motion, pelvis stable Neurologic/Psychiatric: emr trainer II-XII nml as tested, no motor/sensory deficits , alert, normal mood/affect, normal reflexes, oriented x 3 Skin: normal color, warm/dry, no rash Lymphatic: no adenopathy Hospital Course 71 yo male with NSTEMI - Post infarction angina, severe CAD, NSTEMI: treated with cardiac catheterization, found to have three vessel disease > 90% lesion in left circumflex, treated with bare metal stent, on aspirin and Brilinta Lipitor 80mg daily no chest pain for 48 hours, vitals stable, ambulating around RN station without symptoms echocardiogram, EF 65%, no wall motion abnormalities d/c to home today follow up with Dr. Guerrero and discuss referral to cardiothoracic surgery for CABG evaluation - Ventricular fibrillation, during procedure: one episode that resolved with defibrillation, occurred after balloon angioplasty to the left circumflex Amiodarone drip for 24 hours post procedure, no further anti-arrhythmic treatment planned - HTN: previously on Proscar now with new diagnosis of [place] and CAD, change to Toprol and Lisinopril Toprol 25mg daily Lisinopril 10mg daily try to titrate up on Toprol as outpatient, but HR was in the 50's consistently here on only 25mg plan: d/c home with PCP and cardiology follow up Total Time Spent: Greater than 30 minutes This includes examination of the patient, discharge planning, medication reconciliation, and communication with other providers. Discharge Instructions Please refer to the electronic Patient Visit Report (Discharge Instructions) for additional information. Follow-Up Dr. Lim in one week Dr. Guerrero in two weeks Additional Copies To Froylan Guerrero MD; Jamil Lim M.D.
[2016-12-14 10:08] VITALS: BP 143/88; PULSE 66; TEMP 36.8; O2SAT 95
== END 2016-12-14 10:44 | disposition home or self-care (01) | DRG 248 ==
LOC: C.EDA 06:14 → ENRESERV 08:58 → CANRESERV 08:58 → EDBEDREQSVC 09:33 → ENRESERV 09:36 → CANBEDREQ 09:42 → C.MSICU 09:53
PROVIDERS: ADMIT Internal Medicine; ATTEND Internal Medicine
PROC: 4A023N7 Measurement of Cardiac Sampling and Pressure, Left Heart, Percutaneous Approach (ICD-10-PCS; principal; 2016-12-12 08:14)
PROC: B211YZZ Fluoroscopy of Multiple Coronary Arteries using Other Contrast (ICD-10-PCS; principal; 2016-12-12 08:14)
PROC: 02703DZ Dilation of Coronary Artery, One Artery with Intraluminal Device, Percutaneous Approach (ICD-10-PCS; principal; 2016-12-12 08:14)
DX: I21.4 Non-ST elevation (NSTEMI) myocardial infarction (principal); I49.01 Ventricular fibrillation; I23.7 Postinfarction angina; I25.10 Atherosclerotic heart disease of native coronary artery without angina pectoris; I10 Essential (primary) hypertension; Z79.899 Other long term (current) drug therapy; R11.2 Nausea with vomiting, unspecified

== ENCOUNTER → 2017-01-06 | Outpatient (CLI) | payer OTHER, BC ==
[~2017-01-06] MED LIST: ASPEC81 PO; BRL90 PO; LISI-461 PO; LPT40 PO; METO1TAB31 PO; NTRGSL/4 SL
--- NOTE | 2017-01-10 20:02 | MYOCARDIAL PERFUSION SCAN ---
ONE-DAY NUCLEAR MEDICINE TECHNETIUM-99M CARDIOLITE MYOCARDIAL PERFUSION SCAN CLINICAL HISTORY: The patient has known coronary artery disease and had a recent intracoronary stent placed. COMPARISON: None. TECHNIQUE: For the stress portion of the study, 32.0 mCi of Technetium 99 m Cardiolite IV was injected at 11:30 a.m. on 01/06/2017. Fifteen minutes following the injection, imaging of the heart was performed in multiple projection. For the rest portion of the study, 11.0 mCi of Technetium 99 m Cardiolite was injected IV at 9:30 a.m. One hour following the injection, imaging of the heart was performed in the same projections. EXERCISE TREADMILL TESTING: The patient exercised for 5 minutes and 59 seconds on a standard Peter protocol attaining 7 METS and a peak heart of 112 beats per minute (74% maximum predicted heart rate). The test was terminated due to fatigue. The patient did not experience any chest discomfort. Initial blood pressure 110/84 and this increased to 144/80 at peak exertion. Baseline EKG notes sinus bradycardia with first degree AV block and a nonspecific ST and T-wave abnormality. There are no ST segment changes seen over the baseline abnormality. Following the study, the patient was hemodynamically stable without complaints. FINDINGS: The short axis, vertical long axis, horizontal long axis images were reviewed in detail. There is normal tracer uptake at both stress and rest, thus excluding a prior myocardial infarction and evidence of stress induced myocardial ischemia. Left ventricle demonstrates hyperdynamic systolic function with an ejection fraction greater than 70%. There are no wall motion abnormalities. CONCLUSIONS: 1. No scintigraphic evidence of a prior myocardial infarction or stress induced myocardial ischemia. 2. No exercise induced chest pain. 3. No electrocardiogram changes over baseline abnormality. 4. Hyperdynamic left ventricular systolic function with an ejection fraction of greater than 70%. There are no wall motion abnormalities.
== END | disposition home or self-care (01) ==
LOC: C.NUCL 08:50
PROVIDERS: ATTEND Internal Medicine Interventional Cardiology
DX: I25.10 Atherosclerotic heart disease of native coronary artery without angina pectoris (principal)